=== PATIENT | male | born 1965 | race Caucasian/White ===

== ENCOUNTER → 2017-05-02 | Outpatient (CLI) | payer BC ==
[2017-05-02 12:07] LABS: CH 31.8; CHCM 33.8; HCT 45.7 % (39.0-53.0); HDW 2.59; MCHC 32.9 g/dL (31.0-37.0); MCV 94.3 fL (80.0-100.0); Mean Platelet Volume 8.2; RBC 4.84 m/uL (4.30-5.90); RDW 13.3 % (11.5-15.5)
[2017-05-02 12:39] LABS: ALT 57 U/L (21-72); AST 31 U/L (17-59); Alkaline Phosphatase 69 U/L (38-126); Anion Gap 8 mmol/L; Blood Urea Nitrogen 18 mg/dL (9-20); Calcium 9.1 mg/dL (8.4-10.2); Carbon Dioxide 26 mmol/L (22-30); Chloride 108 mmol/L (98-107); Cholesterol 155 mg/dL (<200); Glucose 97 mg/dL (74-99); HDL Cholesterol 41 mg/dL (40-60); Non-African American GFR(MDRD) >60 (>60 ml/min/1.73 sqM); Potassium 4.6 mmol/L (3.5-5.1); Sodium 142 mmol/L (137-145); Total Bilirubin 1.3 mg/dL (0.2-1.3); Total Protein 6.4 g/dL (6.3-8.2); Triglycerides 133 mg/dL (<150)
[2017-05-02 15:51] LABS: Hemoglobin A1C 5.1 % (4.2-6.1)
== END | disposition home or self-care (01) ==
LOC: LABWHC1 11:44
PROVIDERS: ATTEND Internal Medicine Critical Care Medicine
DX: I10 Essential (primary) hypertension (principal)
CPT/HCPCS: 36415; 80053; 80061; 82306; 83036; 84153; 84439; 84443; 85027

== ENCOUNTER 2018-02-11 13:39 | Observation (INO) | payer BC ==
[2018-02-11] MEDS ORDERED: SODIUM CHLORIDE 0.9% 1,000 ML IV STA ×2 (14:13)
[2018-02-11] MEDS ORDERED: ASPIRIN 81 MG PO STA (14:13)
[2018-02-11] MEDS ORDERED: LORazepam 1 MG TAB PO STA (14:20)
--- NOTE | 2018-02-11 14:20 | ED ---
Arrhythmia/Palpitations HPI - General Chief Complaint: Arrhythmia/Palpitations Stated Complaint: Chest pain Time Seen by Provider: 02/11/18 14:01 Source: patient Mode of arrival: wheelchair Limitations: no limitations - History of Present Illness Initial Comments: 52 years old male presents with the palpitation, he was driving and it happened about her [place], he stated he almost passed out he noticed palpitation no chest pain, he was short winded but no pleuritic chest pain no pain with deep breaths , and arrival to the ER while getting out of his truck he almost passed out again he added he feels better at this point no chest pain no pleuritic chest pain no fever no chills he has a no history of heart disease he does have a history of asthma and he denies any use of albuterol now. Her pain no frequency urgency dysuria no weakness of upper or lower extremities no symptoms of TIA or CVA - Related Data Home Medications Medication Instructions Recorded Confirmed Atorvastatin [Lipitor] 40 mg PO HS 05/27/15 02/11/18 Montelukast [Singulair] 10 mg PO HS 05/27/15 02/11/18 Multivitamin [Men's Multi-Vitamin] 1 tab PO DAILY 05/27/15 02/11/18 Aspirin EC [Ecotrin Low Dose] 81 mg PO HS 02/11/18 02/11/18 Cholecalciferol (Vitamin D3) 2,000 unit PO DAILY 02/11/18 02/11/18 [Vitamin D3] Losartan-Hctz 50-12.5 mg [Hyzaar 1 tab PO DAILY 02/11/18 02/11/18 50-12.5] Allergies Allergy/AdvReac Type Severity Reaction Status Date / Time No Known Allergies Allergy Verified 02/11/18 14:27 Review of Systems ROS Statement: Those systems with pertinent positive or pertinent negative responses have been documented in the HPI. ROS Other: All systems not noted in ROS Statement are negative. 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 leiomyosarcoma thigh History of Any Multi-Drug Resistant Organisms: None Reported Past Surgical History: Hernia Repair, Joint Replacement, Orthopedic Surgery Additional Past Surgical History / Comment(s): right knee replaced x 2, arthroscopies knees, trigger finger, tumor removed from thigh Past Anesthesia/Blood Transfusion Reactions: Postoperative Nausea & Vomiting ( PONV) Past Psychological History: No Psychological Hx Reported Smoking Status: Never smoker Past Alcohol Use History: None Reported Past Drug Use History: None Reported General Exam - General Exam Comments Initial Comments: General: The patient is awake and alert, in no distress, and does not appear acutely ill. Looks bit anxious Skin: Skin is warm and dry and no rashes or lesions are noted. Eye: Pupils are equal, round and reactive to light, extra-ocular movements are intact; there is normal conjunctiva bilaterally. Ears, nose, mouth and throat: There are moist mucous membranes and no oral lesions. Neck: The neck is supple, there is no tenderness or JVD. Cardiovascular: There is a regular rate and rhythm. No murmur, rub or gallop is appreciated. Noticed him mild tachycardia heart rate her exam was 104 but in triage I noticed his heart rate was 146 don't have any EKG tracing from the triage time whether is it was a sinus or any pathological rhythm Respiratory: To auscultation bilateral, no wheezing no rhonchi no distress respiratory schumacher noticed Gastrointestinal: Soft, non-distended, non-tender abdomen without masses or organomegaly noted. There is no rebound or guarding present. Bowel sounds are unremarkable. Back: There is no tenderness to palpation in the midline. There is no obvious deformity. Musculoskeletal: Normal ROM, no tenderness, There is no pedal edema. There is no calf tenderness or swelling. No cords were appreciated. Neurological: CN II-XII intact, Cranial nerves III through XII are intact. There are no obvious motor or sensory deficits. Coordination appears grossly intact. Speech is normal. Psychiatric: Cooperative, appropriate mood & affect, normal judgment. Limitations: no limitations Course Vital Signs 02/11/18 02/11/18 13:41 14:30 Pulse Rate 146 H Pulse Rate [ 103 H Sitting Database Security Expert] Pulse Rate [ 118 H Standing Database Security Expert ] Pulse Rate [ 97 Supine Database Security Expert] Respiratory 28 H Rate Blood Pressure 142/85 Blood Pressure 187/101 [Right Arm Sitting] Blood Pressure 160/97 [Right Arm Standing] Blood Pressure 159/87 [Right Arm Supine] O2 Sat by Pulse 100 Oximetry EKG was reviewed, there were couple of areas again looked quite absolutely normal though troponin is normal CBC and compressive metabolic panel are within normal range his orthostatics were done in the ER considering that I am not sure if he had a run of V. tach or any other rhythm like supraventricular tachycardia or paroxysmal atrial fibrillation and he passed out almost a couple times I want to watch him overnight under Dr. Gee service and now will consult cardiology as well (The Holter monitor and echocardiogram, his TSH was normal EKG Findings - EKG Comments: EKG Findings:: EKG is sinus tachycardia ventricular rate is 109 NV interval is 172 QRS duration is 1 of 4 QT/QTc C is 342/460 review of this EKG is a hint of ST elevation in lead 3 and aVF also looks different other leads are within normal range, have no old EKG to compare with and patient hasn't no chest pain Medical Decision Making - Lab Data Result diagrams: 02/11/18 13:59 02/11/18 13:59 Lab Results 02/11/18 02/11/18 02/11/18 Range/Units 13:59 13:59 13:59 WBC 9.5 (3.8-10.6) k/uL RBC 4.97 (4.30-5.90) m/uL Hgb 16.5 (13.0-17.5) gm/dL Hct 44.4 (39.0-53.0) % MCV 89.3 (80.0-100.0) fL MCH 33.1 (25.0-35.0) pg MCHC 37.1 H (31.0-37.0) g/dL RDW 12.8 (11.5-15.5) % Plt Count 316 (150-450) k/uL Neutrophils % 73 % Lymphocytes % 21 % Monocytes % 4 % Eosinophils % 1 % Basophils % 0 % Neutrophils # 6.9 (1.3-7.7) k/uL Lymphocytes # 2.0 (1.0-4.8) k/uL Monocytes # 0.4 (0-1.0) k/uL Eosinophils # 0.1 (0-0.7) k/uL Basophils # 0.0 (0-0.2) k/uL PT (9.0-12.0) sec INR (<1.2) APTT (22.0-30.0) sec Sodium 145 (137-145) mmol/L Potassium 4.1 (3.5-5.1) mmol/L Chloride 104 (98-107) mmol/L Carbon Dioxide 21 L (22-30) mmol/L Anion Gap 20 mmol/L BUN 22 H (9-20) mg/dL Creatinine 0.90 (0.66-1.25) mg/dL Est GFR (CKD-EPI)AfAm >90 (>60 ml/min/1.73 sqM) Est GFR (CKD-EPI)NonAf >90 (>60 ml/min/1.73 sqM) Glucose 159 H (74-99) mg/dL Calcium 10.7 H (8.4-10.2) mg/dL Magnesium 1.8 (1.6-2.3) mg/dL Total Bilirubin 1.2 (0.2-1.3) mg/dL AST 30 (17-59) U/L ALT 36 (21-72) U/L Alkaline Phosphatase 65 (38-126) U/L Total Creatine Kinase 147 (55-170) U/L CK-MB (CK-2) 3.1 H* (0.0-2.4) ng/mL CK-MB (CK-2) Rel Index 2.1 Troponin I <0.012 (0.000-0.034) ng/mL Total Protein 7.5 (6.3-8.2) g/dL Albumin 4.6 (3.5-5.0) g/dL TSH 2.320 (0.465-4.680) mIU/L 02/11/18 Range/Units 13:59 WBC (3.8-10.6) k/uL RBC (4.30-5.90) m/uL Hgb (13.0-17.5) gm/dL Hct (39.0-53.0) % MCV (80.0-100.0) fL MCH (25.0-35.0) pg MCHC (31.0-37.0) g/dL RDW (11.5-15.5) % Plt Count (150-450) k/uL Neutrophils % % Lymphocytes % % Monocytes % % Eosinophils % % Basophils % % Neutrophils # (1.3-7.7) k/uL Lymphocytes # (1.0-4.8) k/uL Monocytes # (0-1.0) k/uL Eosinophils # (0-0.7) k/uL Basophils # (0-0.2) k/uL PT 10.2 (9.0-12.0) sec INR 1.0 (<1.2) APTT 23.0 (22.0-30.0) sec Sodium (137-145) mmol/L Potassium (3.5-5.1) mmol/L Chloride (98-107) mmol/L Carbon Dioxide (22-30) mmol/L Anion Gap mmol/L BUN (9-20) mg/dL Creatinine (0.66-1.25) mg/dL Est GFR (CKD-EPI)AfAm (>60 ml/min/1.73 sqM) Est GFR (CKD-EPI)NonAf (>60 ml/min/1.73 sqM) Glucose (74-99) mg/dL Calcium (8.4-10.2) mg/dL Magnesium (1.6-2.3) mg/dL Total Bilirubin (0.2-1.3) mg/dL AST (17-59) U/L ALT (21-72) U/L Alkaline Phosphatase (38-126) U/L Total Creatine Kinase (55-170) U/L CK-MB (CK-2) (0.0-2.4) ng/mL CK-MB (CK-2) Rel Index Troponin I (0.000-0.034) ng/mL Total Protein (6.3-8.2) g/dL Albumin (3.5-5.0) g/dL TSH (0.465-4.680) mIU/L Disposition Clinical Impression: Palpitation, Tachycardia, Pre-syncope Disposition: ADMITTED IP TO THIS HOSP Condition: Good Referrals: Corey Deleon DO [Primary Care Provider] - 1-2 days
[2018-02-11 14:39] LABS: Basophils % (A) 0 %; Eosinophils # (A) 0.1 k/uL (0-0.7); Eosinophils % (A) 1 %; HCT 44.4 % (39.0-53.0); HGB 16.5 gm/dL (13.0-17.5); Lymphocytes % (A) 21 %; MCH 33.1 pg (25.0-35.0); MCHC 37.1 g/dL (31.0-37.0); MCV 89.3 fL (80.0-100.0); Mean Platelet Volume 8.5; Monocytes # (A) 0.4 k/uL (0-1.0); Monocytes % (A) 4 %; Neutrophils # (A) 6.9 k/uL (1.3-7.7); Neutrophils % (A) 73 %; Platelet Count 316 k/uL (150-450); RBC 4.97 m/uL (4.30-5.90); RDW 12.8 % (11.5-15.5); WBC 9.5 k/uL (3.8-10.6)
[2018-02-11 14:52] LABS: ALT 36 U/L (21-72); AST 30 U/L (17-59); Albumin 4.6 g/dL (3.5-5.0); Alkaline Phosphatase 65 U/L (38-126); Anion Gap 20 mmol/L; Blood Urea Nitrogen 22 mg/dL (9-20); Calcium 10.7 mg/dL (8.4-10.2); Carbon Dioxide 21 mmol/L (22-30); Chloride 104 mmol/L (98-107); Glucose 159 mg/dL (74-99); Magnesium 1.8 mg/dL (1.6-2.3); Potassium 4.1 mmol/L (3.5-5.1); Sodium 145 mmol/L (137-145); Total Bilirubin 1.2 mg/dL (0.2-1.3); Total Protein 7.5 g/dL (6.3-8.2)
[2018-02-11 14:53] LABS: Prothrombin Time 10.2 sec (9.0-12.0)
[2018-02-11 15:00] LABS: Creatine Kinase 147 U/L (55-170)
--- NOTE | 2018-02-11 15:08 | XR ---
EXAMINATION TYPE: XR chest 2V DATE OF EXAM: 02/11/2018 COMPARISON: NONE HISTORY: Palpitations and dysrhythmia. TECHNIQUE: Frontal and lateral views of the chest are obtained. FINDINGS: There is eventration of the anterior aspect right hemidiaphragm. There is no focal air spac e opacity, pleural effusion, or pneumothorax seen. The cardiac silhouette size is within normal limi ts. The osseous structures are intact. IMPRESSION: No acute cardiopulmonary process.
[2018-02-11 15:13] LABS: Troponin I <0.012 ng/mL (0.000-0.034)
[2018-02-11 15:19] LABS: Creatine Kinase MB 3.1 ng/mL (0.0-2.4)
[2018-02-11] MEDS ORDERED: MORPHINE SULFATE 4MG/4ML SYRG IVP PRN (15:31)
[2018-02-11 16:44] VITALS: BMI 36.3
[2018-02-11] MEDS ORDERED: NITROGLYCERIN OINT 1 INCH/GM PACKET TOPICAL SCH (18:00)
[2018-02-11] MEDS ORDERED: RX INFO: IV CONTRAST WAS GIVEN 1 EACH MISC MISCELLANE PRN (20:33)
[2018-02-11] MEDS: ATORVASTATIN 40 MG TAB PO SCH (21:00)
[2018-02-11] MEDS: MONTELUKAST 10 MG TAB PO SCH (21:00)
[2018-02-11 21:14] LABS: Troponin I 0.031 ng/mL (0.000-0.034)
[2018-02-11] MEDS ORDERED: MORPHINE ORAL SOLN 10 MG/5 ML CUP PO PRN (21:30)
--- NOTE | 2018-02-11 22:06 | CT ---
EXAMINATION TYPE: CT angio chest DATE OF EXAM: 02/11/2018 COMPARISON: Same day chest x-ray HISTORY: SOB rule out pulmonary embolism. CT DLP: 687 mGycm. Automated Exposure Control for Dose Reduction was Utilized. CONTRAST: CTA scan of the thorax is performed with IV Contrast, patient injected with 80 mL of Isovue 370, pulm onary embolism protocol. MIP Images are created on CT scanner and reviewed. FINDINGS: LUNGS: The lungs are grossly clear, there is no concerning parenchymal mass or nodule identified. T here is no pleural effusion or pneumothorax seen. The tracheobronchial tree is patent. MEDIASTINUM: There is satisfactory enhancement of the pulmonary artery and its branches, there is no CT evidence for pulmonary embolism. There are no greater than 1 cm hilar or mediastinal lymph nodes. No cardiomegaly or pericardial effusion is seen. OTHER: There is 1.6 cm rounded low-density lesion left hepatic lobe favoring simple cyst axial image 155. IMPRESSION: No CT evidence for acute pulmonary embolism. No suspicious acute pulmonary process.
--- NOTE | 2018-02-11 23:06 | HP ---
HISTORY AND PHYSICAL DATE OF ADMISSION: 02/11/2018 PRESENTING COMPLAINT: Heart racing. HISTORY OF PRESENTING COMPLAINT: This is a very pleasant 52-year-old patient of Dr. Deleon. Chronic stable medical conditions include asthma, asthma, hypertension, hyperlipidemia. 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 The patient is rather active. The patient was driving back from [place] on [address] and suddenly felt if there was a olvera to his head and heart started racing. The patient started driving in the slow zeeshan and patient had waves of these episodes that came and went. No perspiration, but the patient was nearly going to pass out. There was no chest pressure, no chest pain. Finally, patient drove straight to the hospital ER. When he was getting of the truck, he nearly again passed out. There was a tachycardia that initially got picked up, but could not be put on the recording paper. The patient had no prior arrhythmias. REVIEW OF SYSTEMS: CONSTITUTIONAL: Tired. HEENT: None. RESPIRATORY: As above. CARDIOVASCULAR: As above. GASTROINTESTINAL: None. GENITOURINARY: None. MUSCULOSKELETAL: Occasional aches and pains in the joints. DERMATOLOGICAL: None. HEMATOLOGIC: None. LYMPHATIC: None. PSYCHIATRY: None. NEUROLOGIC: None. PAST HISTORY: Asthma, DVT after knee surgery, hypertension, hyperlipidemia, leiomyosarcoma of the right thigh. See report of the left knee. PAST SURGICAL HISTORY: Hernia repair, joint replacement, right knee replaced x2, trigger finger surgery x5, tumor removed from the thigh, leiomyosarcoma. SOCIAL HISTORY: Does not smoke or drink alcohol. 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 FAMILY HISTORY: Reviewed, noncontributory to presentation. HOME MEDICATIONS: 1. Men's multivitamin 1 tablet p.o. daily. 2. Singulair 10 mg p.o. q.h.s. 3. Hyzaar 50/12.5 one tablet p.o. daily. 4. Vitamin D3 2000 units p.o. daily. 5. Lipitor 40 mg q.h.s. 6. Aspirin 81 mg p.o. q.h.s. EXAMINATION: Temperature 98.7, pulse 73, respirations 18, blood pressure 117/78, pulse ox 96% on room air. GENERAL APPEARANCE: Well-built, BMI 36.4, lying in bed, comfortable. EYES: Pupils equal. Conjunctivae normal. HEENT: External appearance of nose and ears normal. Oral cavity normal. NECK: JVD not raised. Mass not palpable. RESPIRATORY: Effort normal. Lungs are clear. CARDIOVASCULAR: First and second sounds normal. No edema. ABDOMEN: Soft, nontender. Liver and spleen not palpable. LYMPHATIC: No lymph node palpable in neck or axillae. PSYCHIATRY: Alert and oriented x3. Mood and affect normal. NEUROLOGICAL: Pupils equal. Cranial nerves grossly intact. Power and sensation grossly intact. INVESTIGATIONS: White count 9.5. Potassium 4.1, BUN 22, creatinine 0.90. Troponin less than 0.012, 0.031. TSH normal. EKG: The patient does seem to have S1Q3T3 in the EKG. Chest x- ray reported unremarkable. ASSESSMENT: 1. This is a patient with episodes of heart racing, probably episodes of arrhythmia resulting in near syncope. 2. Abnormal EKG showing S1QTT3. Given a prior history of deep venous thrombosis, will rule out pulmonary embolism that can sometimes manifest as near syncope, though and in this case he did have the heart racing. 3. Intermittent asthma. 4. Essential hypertension. 5. Hyperlipidemia. 6. Obesity; BMI 36.4. PLAN: Urgent CT scan of the chest has been ordered. Home medications resumed. Patient put on telemetry. Care was discussed with the patient. Questions were answered. Cardiology was consulted. MMBASILIOL / TOMN: [id number] /
[2018-02-12 02:25] LABS: Troponin I 0.019 ng/mL (0.000-0.034)
[2018-02-12 02:28] LABS: Creatine Kinase MB 2.5 ng/mL (0.0-2.4)
[2018-02-12 03:36] LABS: Cholesterol 175 mg/dL (<200); HDL Cholesterol 43 mg/dL (40-60); LDL Cholesterol,Calculated 93 mg/dL (0-99); Triglycerides 193 mg/dL (<150)
--- NOTE | 2018-02-12 10:47 | P.CRDCN ---
History of Present Illness Consult date: 02/12/18 Chief complaint: Funny feeling in my chest History of present illness: This is a pleasant 52-year-old gentleman who presented to the emergency room complaining of funny feeling in the chest. He was driving his car on the highway when he suddenly felt lightheaded and subsequently he felt his heart was racing. He does not recall having any chest discomfort or chest pain but he was holding his chest probably because of the heart racing. No dizziness and no syncope. The patient was admitted to the hospital for further evaluation. The EKG showed sinus rhythm without any ischemic changes. The cardiac enzymes were checked and came in to be unremarkable. The computed tomography scan of the chest did not show any evidence of PE. The patient does not have any history of coronary artery disease or congestive heart failure or cardiac arrhythmia. He does have asthma and he does have history of DVT in the past. He just had his left knee drained for pseudogout recently. He does not smoke. There is no family history of coronary artery disease. I am going to obtain a stress test and echocardiogram and follow-up with the patient. 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, left knee pseudo-gout History of Any Multi-Drug Resistant Organisms: None Reported Past Surgical History: Hernia Repair, Joint Replacement, Orthopedic Surgery Additional Past Surgical History / Comment(s): right knee replaced x 2, arthroscopies knees, trigger finger surgeries x5, tumor removed from thigh Past Anesthesia/Blood Transfusion Reactions: Postoperative Nausea & Vomiting ( PONV) Past Psychological History: No Psychological Hx Reported Smoking Status: Never smoker Past Alcohol Use History: None Reported Past Drug Use History: None Reported Medications and Allergies Home Medications Medication Instructions Recorded Confirmed Type Atorvastatin [Lipitor] 40 mg PO HS 05/27/15 02/11/18 History Montelukast [Singulair] 10 mg PO HS 05/27/15 02/11/18 History Multivitamin [Men's Multi-Vitamin] 1 tab PO DAILY 05/27/15 02/11/18 History Aspirin EC [Ecotrin Low Dose] 81 mg PO HS 02/11/18 02/11/18 History Cholecalciferol (Vitamin D3) 2,000 unit PO DAILY 02/11/18 02/11/18 History [Vitamin D3] Losartan-Hctz 50-12.5 mg [Hyzaar 1 tab PO DAILY 02/11/18 02/11/18 History 50-12.5] Allergies Allergy/AdvReac Type Severity Reaction Status Date / Time No Known Allergies Allergy Verified 02/11/18 14:27 Physical Exam Vitals: Vital Signs Temp Pulse Pulse Pulse Pulse Pulse Resp 02/12/18 08:00 98.1 F 68 103 H 118 H 92 18 02/12/18 07:37 02/12/18 04:10 97.9 F 60 18 02/12/18 04:00 16 02/12/18 00:07 98.5 F 66 16 02/12/18 00:00 16 02/11/18 20:19 98.7 F 73 18 02/11/18 20:00 18 02/11/18 16:50 89 103 H 118 H 92 18 02/11/18 16:06 98.2 F 89 18 02/11/18 15:53 98.1 F 92 18 02/11/18 15:31 93 18 02/11/18 14:30 103 H 118 H 97 02/11/18 13:41 146 H 28 H BP BP BP BP BP Pulse Ox 02/12/18 08:00 131/84 95 02/12/18 07:37 95 02/12/18 04:10 132/85 97 02/12/18 04:00 02/12/18 00:07 117/78 95 02/12/18 00:00 02/11/18 20:19 117/78 96 02/11/18 20:00 02/11/18 16:50 02/11/18 16:06 140/83 98 02/11/18 15:53 153/94 02/11/18 15:31 161/91 96 02/11/18 14:30 187/101 160/97 159/87 02/11/18 13:41 142/85 100 Intake and Output 02/11/18 02/12/18 02/12/18 22:59 06:59 14:59 Other: Voiding Method Toilet Toilet Toilet # Voids 1 2 Weight 142.882 kg 142.882 kg - Constitutional General appearance: no acute distress - Respiratory Respiratory: bilateral: CTA - Cardiovascular Rhythm: regular Heart sounds: normal: S1, S2 Results 02/11/18 13:59 02/11/18 13:59 Cardiac Enzymes 02/11/18 02/11/18 02/11/18 Range/Units 13:59 13:59 20:13 AST 30 (17-59) U/L CK-MB (CK-2) 3.1 H* 3.0 H* (0.0-2.4) ng/mL Troponin I <0.012 0.031 (0.000-0.034) ng/mL 02/12/18 Range/Units 01:28 AST (17-59) U/L CK-MB (CK-2) 2.5 H* (0.0-2.4) ng/mL Troponin I 0.019 (0.000-0.034) ng/mL Coagulation 02/11/18 Range/Units 13:59 PT 10.2 (9.0-12.0) sec APTT 23.0 (22.0-30.0) sec Lipids 02/11/18 Range/Units 13:59 Triglycerides 193 H (<150) mg/dL Cholesterol 175 (<200) mg/dL HDL Cholesterol 43 (40-60) mg/dL CBC 02/11/18 Range/Units 13:59 WBC 9.5 (3.8-10.6) k/uL RBC 4.97 (4.30-5.90) m/uL Hgb 16.5 (13.0-17.5) gm/dL Hct 44.4 (39.0-53.0) % Plt Count 316 (150-450) k/uL Comprehensive Metabolic Panel 02/11/18 Range/Units 13:59 Sodium 145 (137-145) mmol/L Potassium 4.1 (3.5-5.1) mmol/L Chloride 104 (98-107) mmol/L Carbon Dioxide 21 L (22-30) mmol/L BUN 22 H (9-20) mg/dL Creatinine 0.90 (0.66-1.25) mg/dL Glucose 159 H (74-99) mg/dL Calcium 10.7 H (8.4-10.2) mg/dL AST 30 (17-59) U/L ALT 36 (21-72) U/L Alkaline Phosphatase 65 (38-126) U/L Total Protein 7.5 (6.3-8.2) g/dL Albumin 4.6 (3.5-5.0) g/dL Current Medications Generic Name Dose Route Start Last Admin Trade Name [place] PRN Reason Stop Dose Admin Aspirin 325 mg 02/12/18 09:00 Aspirin PO DAILY [facility] Atorvastatin Calcium 40 mg 02/11/18 21:00 02/11/18 21:00 Lipitor PO 40 mg HS [facility] Administration Cholecalciferol 2,000 unit 02/12/18 12:00 Vitamin D3 PO 1200 [facility] HCTZ/Losartan Potassium 1 each 02/12/18 09:00 Hyzaar 50-12.5 PO DAILY [facility] Lisinopril 10 mg 02/12/18 09:00 Zestril PO DAILY [facility] Miscellaneous Information 1 each 02/11/18 20:33 Rx Info: Iv Contrast Was Given MISCELLANE 02/13/18 20:34 DAILY PRN Per Protocol Montelukast Sodium 10 mg 02/11/18 21:00 02/11/18 21:00 Singulair PO 10 mg HS [facility] Administration Morphine Sulfate 6 mg 02/11/18 21:30 Morphine Oral Cristina 2mg/Ml PO Q5M PRN Chest Pain Multivitamins 1 each 02/12/18 12:00 Theragran PO 1200 [facility] Intake and Output 02/11/18 02/12/18 02/12/18 22:59 06:59 14:59 Other: Voiding Method Toilet Toilet Toilet # Voids 1 2 Weight 142.882 kg 142.882 kg 02/11/18 13:59 02/11/18 13:59 Assessment and Plan Assessment: Assessment #1 an episode of heart racing and fluttering associated with lightheadedness #2 history of DVT in the past Plan #1 acute coronary syndrome was ruled #2 cardiac arrhythmia to be ruled out. He might benefit from an event monitor as an outpatient if he did not have any arrhythmia while he is in the hospital next #3 I'll obtain an echocardiogram was Doppler #4 obtain a stress test as well. #5 obtain a TSH. Thank you for allowing us participate in his care.
[2018-02-12] MEDS: LISINOPRIL 10 MG TAB PO SCH (11:43)
[2018-02-12] MEDS: LOSARTAN-HCTZ 50-12.5 MG 1 EACH TAB PO SCH (11:43)
[2018-02-12] MEDS: ASPIRIN 325 MG TAB PO SCH (11:43)
[2018-02-12] MEDS: CHOLECALCIFEROL 1,000 UNIT TAB PO SCH (11:44)
[2018-02-12] MEDS: MULTIVITAMINS, THERA 1 EACH TAB PO SCH (11:44)
--- NOTE | 2018-02-12 14:28 | PN ---
PROGRESS NOTE DATE OF SERVICE: 02/12/18. PRESENT COMPLAINT: Heart racing. INTERVAL HISTORY: This patient presented with episodes of near-syncope and heart racing and he drove to the hospital. PE was ruled out. Telemetry did not merchandise pickup/receiving associate anything. Seen by Cardiology. Due for stress test tomorrow. Otherwise, patient is up and about in the hallway. REVIEW OF SYSTEMS: Done for constitutional, cardiovascular, GI, pulmonary; relevant findings as above. CURRENT MEDICATIONS: Reviewed. EXAMINATION: Temperature 98.1, pulse 99, respiratory 18, blood pressure 140/86, pulse ox 96% on room air. GENERAL APPEARANCE: Sitting up in bed, comfortable. EYES: Pupils equal. Conjunctivae normal. HEENT: External appearance of nose and ears normal. Oral cavity normal NECK: JVD not raised. Mass not palpable. RESPIRATORY: Effort normal, lungs are clear. CARDIOVASCULAR: First and second sounds normal. No edema. ABDOMEN: Soft, nontender. Liver and spleen not palpable. PSYCHIATRY: Alert and oriented x3. Mood and affect normal. INVESTIGATION: Telemetry shows sinus rhythm. Troponin is less than 0.012, 0.031, 0.0019. ASSESSMENT: 1. Episodes of tachycardia. Cardiac ischemia being ruled out. Patient's TSH is normal. 2. Pulmonary embolism was ruled out. 3. Intermittent asthma. 4. Essential hypertension. 5. Hyperlipidemia. 6. Obesity, BMI 36.4. PLAN: Await stress test. Other medications to continue. Care was discussed with the patient. MMODL / IJN: [id number] /
--- NOTE | 2018-02-12 15:07 | P.CNPUL ---
History of Present Illness Consult date: 02/12/18 Requesting physician: Ricky Gee Reason for consult: other (Palpitations, history of asthma.) Chief complaint: Lightheadedness and palpitations History of present illness: This is a 52-year-old white male who normally sees Dr. Rachel Deleon for mild intermittent asthma, and fairly well controlled. Patient came into the ER yesterday complaining of a sudden episode of palpitations and funny sensation in the head almost about to pass out. Patient felt extremely lightheaded while he was driving on the highway, however the patient Driving, and the feeling lasted for about 20 minutes. By the time he arrived to the ER, his symptoms have completely resolved. Patient was worked up in the ER, and the workup included multiple labs which were normal, and CT angiogram of the chest which was normal. EKG did show S1 Q3T3, but again the CT angiogram of the chest was normal. Patient was admitted, and this consult was initiated. Presently the patient is asymptomatic, denies any lightheadedness, no diaphoresis, no chest pain, no palpitations, no shortness of breath, no cough, no wheezing, no nausea no vomiting no abdominal pain no melena no hematemesis is no dysuria and no frequency no urgency. Patient was seen by cardiology on consultation, and he is scheduled to have a stress test, he will likely need an event monitor on outpatient basis assuming his initial cardiac workup is nondiagnostic. Review of Systems 14 point review of systems were obtained, please refer to pertinent positives in HPI, otherwise remaining systems are negative. 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, left knee pseudo-gout History of Any Multi-Drug Resistant Organisms: None Reported Past Surgical History: Hernia Repair, Joint Replacement, Orthopedic Surgery Additional Past Surgical History / Comment(s): right knee replaced x 2, arthroscopies knees, trigger finger surgeries x5, tumor removed from thigh Past Anesthesia/Blood Transfusion Reactions: Postoperative Nausea & Vomiting ( PONV) Past Psychological History: No Psychological Hx Reported Smoking Status: Never smoker Past Alcohol Use History: None Reported Past Drug Use History: None Reported Medications and Allergies Home Medications Medication Instructions Recorded Confirmed Type Atorvastatin [Lipitor] 40 mg PO HS 05/27/15 02/11/18 History Montelukast [Singulair] 10 mg PO HS 05/27/15 02/11/18 History Multivitamin [Men's Multi-Vitamin] 1 tab PO DAILY 05/27/15 02/11/18 History Aspirin EC [Ecotrin Low Dose] 81 mg PO HS 02/11/18 02/11/18 History Cholecalciferol (Vitamin D3) 2,000 unit PO DAILY 02/11/18 02/11/18 History [Vitamin D3] Losartan-Hctz 50-12.5 mg [Hyzaar 1 tab PO DAILY 02/11/18 02/11/18 History 50-12.5] Allergies Allergy/AdvReac Type Severity Reaction Status Date / Time No Known Allergies Allergy Verified 02/11/18 14:27 Physical Exam Vitals: Vital Signs Temp Pulse Pulse Pulse Pulse Pulse Resp 02/12/18 12:00 98.1 F 79 103 H 118 H 92 18 02/12/18 08:00 98.1 F 68 103 H 118 H 92 18 02/12/18 07:37 02/12/18 04:10 97.9 F 60 18 02/12/18 04:00 16 02/12/18 00:07 98.5 F 66 16 02/12/18 00:00 16 02/11/18 20:19 98.7 F 73 18 02/11/18 20:00 18 02/11/18 16:50 89 103 H 118 H 92 18 02/11/18 16:06 98.2 F 89 18 02/11/18 15:53 98.1 F 92 18 02/11/18 15:31 93 18 BP BP BP Pulse Ox 02/12/18 12:00 141/86 96 02/12/18 08:00 131/84 95 02/12/18 07:37 95 02/12/18 04:10 132/85 97 02/12/18 04:00 02/12/18 00:07 117/78 95 02/12/18 00:00 02/11/18 20:19 117/78 96 02/11/18 20:00 02/11/18 16:50 02/11/18 16:06 140/83 98 02/11/18 15:53 153/94 02/11/18 15:31 161/91 96 Intake and Output 02/11/18 02/12/18 02/12/18 22:59 06:59 14:59 Other: Voiding Method Toilet Toilet Toilet # Voids 1 2 Weight 142.882 kg 142.882 kg 142.882 kg Physical Exam: Revealed a 52-year-old white male in no distress. Head: Atraumatic, normocephalic. Eyes: PERRLA, EOMI, no icterus. HEENT:[Neck is supple.] [No neck masses.] [No thyromegaly.] [No JVD.] Chest: [Clear throughout, no crackles, no rhonchi, no wheezes.] Cardiac Exam: [Normal S1 and S2, no S3 gallop, no murmur.] Abdomen: [Soft, nontender, no megaly, no rebound, no guarding, normal bowel sounds.] Extremities: [No clubbing, no edema, no cyanosis.] Neurological Exam: [No focal neurologic deficit. Psychiatric: Normal mood affect and mental status examination. Musculoskeletal full intact, normal range of motion, no weakness. Lymphatics: No lymphadenopathy.] Results - Laboratory Findings CBC and BMP: 02/11/18 13:59 02/11/18 13:59 PT/INR, D-dimer PT 10.2 sec (9.0-12.0) 02/11/18 13:59 INR 1.0 (<1.2) 02/11/18 13:59 Abnormal lab findings: Abnormal Labs 02/11/18 02/11/18 02/11/18 13:59 13:59 13:59 MCHC 37.1 H Carbon Dioxide 21 L BUN 22 H Glucose 159 H Calcium 10.7 H CK-MB (CK-2) 3.1 H* Triglycerides 02/11/18 02/11/18 02/12/18 13:59 20:13 01:28 MCHC Carbon Dioxide BUN Glucose Calcium CK-MB (CK-2) 3.0 H* 2.5 H* Triglycerides 193 H - Diagnostic Findings Chest x-ray: image reviewed (No evidence of active disease was appreciated.) CT scan - chest: image reviewed Assessment and Plan Assessment: Impression: 1 near syncope, most likely secondary to cardiac arrhythmia, nonsustained. 2 possible underlying coronary artery disease, patient is scheduled to have a cardiac stress test tomorrow. 3 history of mild bronchial asthma asymptomatic, and stable at this point. Recommendation: Agree with the present diagnostic and treatment plan as per cardiology, patient will need further cardiac investigations tomorrow, thyroid profile is pending, will definitely need at least an echocardiogram, stress testing, and a 30 day event monitor. We'll continue to follow. Time with Patient: Greater than 30
[2018-02-12] MEDS: MONTELUKAST 10 MG TAB PO SCH (20:00)
[2018-02-12] MEDS: ATORVASTATIN 40 MG TAB PO SCH (20:00)
[2018-02-12 23:29] VITALS: RESP 18
[2018-02-13] MEDS ORDERED: AMINOPHYLLINE 500 MG/20 ML VIAL IV PRN (05:00)
[2018-02-13] MEDS ORDERED: REGADENOSON 0.4 MG/5 ML SYRINGE IV ONE (05:00)
[2018-02-13] MEDS ORDERED: SYMBICORT 80-4.5 MCG INHALER INHALATION SCH (08:00)
--- NOTE | 2018-02-13 10:48 | EST ---
EXERCISE STRESS DATE OF SERVICE: 02/13/2018 AGE: 52 SEX: Male HT: 6'6" WT: 315 pounds PROTOCOL: Lexiscan Cardiolite STAGE: DURATION OF EXERCISE: HEART RATE REST: 68 BLOOD PRESSURE REST: 137/99 MAXIMUM HEART RATE ACHIEVED: 129 MAXIMUM BLOOD PRESSURE: 155/100 85% MPHR: 141 100% MPHR: 166 METS: INDICATIONS: Dizzy, palpitations. CLINICAL INFORMATION: A 52-year-old male patient with chest discomfort, palpitations and dizziness, referred for a Lexiscan Cardiolite stress test. Baseline heart rate 68 beats per minute. Baseline blood pressure is 137/99 mmHg. Patient's baseline 12-lead ECG shows sinus rhythm with normal ST segments. Patient received Lexiscan infusion per protocol. He did complain of chest pain during the stress test but he had no ECG changes and occasional PVC was noted. Heart rate and blood pressure remained within normal limits. Nuclear portion of the stress test will be reported separately. MMODL / IJN: [id number] /
[2018-02-13] MEDS: ASPIRIN 325 MG TAB PO SCH (10:50)
[2018-02-13] MEDS: LOSARTAN-HCTZ 50-12.5 MG 1 EACH TAB PO SCH (10:50)
[2018-02-13] MEDS: LISINOPRIL 10 MG TAB PO SCH (10:50)
--- NOTE | 2018-02-13 10:58 | NM ---
EXAMINATION TYPE: NM stress lexiscan cardiolite DATE OF EXAM: 02/13/2018 COMPARISON: NONE HISTORY: Chest pain and heart palpitations TECHNIQUE: After the intravenous administration of 10.29 mCi Tc 99m Sestamibi - Cardiolite resting S PECT images acquired 45 minutes post injection. The patient received 0.4mg Lexiscan, 26.7 mCi Tc 99m Sestamibi - Stress images obtained [address] injection FINDINGS: Review of stress and rest SPECT images demonstrates no distinct perfusion abnormality. Gated analysi s shows normal wall motion with an estimated left ventricular ejection fraction of 51 %. IMPRESSION: No scintigraphic evidence for reversible ischemia.
[2018-02-13 11:39] VITALS: BP 149/88; PULSE 73; TEMP 98.2
[2018-02-13] MEDS: CHOLECALCIFEROL 1,000 UNIT TAB PO SCH (12:35)
[2018-02-13] MEDS: MULTIVITAMINS, THERA 1 EACH TAB PO SCH (12:35)
--- NOTE | 2018-02-13 12:57 | P.PN ---
Subjective Progress Note Date: 02/13/18 Principal diagnosis: Near syncopal episode, most likely secondary to cardiac arrhythmia, nonsustained This is a 52-year-old white male who normally sees Dr. Rachel Deleon for mild intermittent asthma, and fairly well controlled. Patient came into the ER yesterday complaining of a sudden episode of palpitations and funny sensation in the head almost about to pass out. Patient felt extremely lightheaded while he was driving on the highway, however the patient Driving, and the feeling lasted for about 20 minutes. By the time he arrived to the ER, his symptoms have completely resolved. Patient was worked up in the ER, and the workup included multiple labs which were normal, and CT angiogram of the chest which was normal. EKG did show S1 Q3T3, but again the CT angiogram of the chest was normal. Patient was admitted, and this consult was initiated. Presently the patient is asymptomatic, denies any lightheadedness, no diaphoresis, no chest pain, no palpitations, no shortness of breath, no cough, no wheezing, no nausea no vomiting no abdominal pain no melena no hematemesis is no dysuria and no frequency no urgency. Patient was seen by cardiology on consultation, and he is scheduled to have a stress test, he will likely need an event monitor on outpatient basis assuming his initial cardiac workup is nondiagnostic. On 02/13/2018 patient seen in follow-up. He underwent Lexiscan stress test which showed no scintigraphic evidence for reversible ischemia, during the exercise portion of the stress test patient did have chest pain however did not have any EKG changes. During our evaluation patient denies any chest pain at rest, denies any dyspnea, lung sounds are clear, diminished at the bases. Afebrile, vital signs are stable, on room air, with O2 sat 95%. No evidence of wheezing, chest congestion or sputum production. CTA chest was negative for any evidence of pulmonary embolism. Patient's presyncopal episode is thought to be related to a possible episode of nonsustained arrhythmia. Troponins were negative 3, however all 3 sets of CK-MBs were elevated And out of 3.1. White count is within normal limits, at 9.5. Chest x-ray and CTA chest were negative for any evidence of any acute pulmonary process. But in view of patient's EKG changes with S1 every 3 T3 pattern, we'll obtain VQ scan, d-dimer. Patient will need an outpatient Holter monitor for 1 week after discharge. 2-D echo has been completed, and the results are pending. Objective - Vital Signs Vital signs: Vital Signs Temp 98.2 F 02/13/18 11:39 Pulse 73 02/13/18 11:39 Resp 18 02/13/18 11:39 BP 149/88 02/13/18 11:39 Pulse Ox 95 02/13/18 11:39 Intake & Output 02/12/18 02/13/18 02/13/18 18:59 06:59 18:59 Weight 142.882 kg Other: Voiding Method Toilet Toilet Toilet # Voids 3 1 - Exam Physical Exam: Revealed a 52-year-old white male in no distress. Head: Atraumatic, normocephalic. Eyes: PERRLA, EOMI, no icterus. HEENT:[Neck is supple.] [No neck masses.] [No thyromegaly.] [No JVD.] Chest: [Clear throughout, no crackles, no rhonchi, no wheezes.] Cardiac Exam: [Normal S1 and S2, no S3 gallop, no murmur.] Abdomen: [Soft, nontender, no megaly, no rebound, no guarding, normal bowel sounds.] Extremities: [No clubbing, no edema, no cyanosis.] Neurological Exam: [No focal neurologic deficit. Psychiatric: Normal mood affect and mental status examination. Musculoskeletal full intact, normal range of motion, no weakness. Lymphatics: No lymphadenopathy.] - Labs CBC & Chem 7: 02/11/18 13:59 02/11/18 13:59 Assessment and Plan Plan: Assessment: 1 near syncope, most likely secondary to cardiac arrhythmia, nonsustained. 2 possible underlying coronary artery disease, the Lexiscan stress test did not show any scintigraphic evidence of reversible ischemia, the exercise portion of the stress test was positive for chest pain, however no EKG changes were noted with it 3 history of mild bronchial asthma asymptomatic, and stable at this point. Plan: The results of the stress test were noted, patient did have chest pain during the exercise portion, however no EKG changes were noted with it. Will await the results of the 2-D echo, will obtain a VQ scan and the d-dimer, although CTA chest did not show any evidence of pulmonary embolism. Patient will need a Holter monitor post discharge for 1 week. Will need a follow-up appointment Dr. Deleon early next week. We'll continue to follow I performed a history & physical examination of the patient and discussed their management with my nurse practitioner, Jocelyne Hayes. I reviewed the nurse practitioner's note and agree with the documented findings and plan of care. Lung sounds are clear. The findings and the impression was discussed with the patient. I attest to the documentation by the nurse practitioner. Time with Patient: Less than 30
--- NOTE | 2018-02-13 13:57 | P.PN ---
Subjective Progress Note Date: 02/13/18 Mr. Galarza is seen and examined today resting comfortably in bed in no acute distress. He was seen yesterday by Dr. Du and scheduled for a Lexiscan stress test today to rule out reversible cardiac ischemia. He has had no further symptoms of chest discomfort, palpitations or dizziness overnight. Telemetry tracings have been unremarkable. TSH was checked and was unremarkable at 2.3. Objective - Vital Signs Vital signs: Vital Signs Temp 98.2 F 02/13/18 11:39 Pulse 73 02/13/18 11:39 Resp 18 02/13/18 11:39 BP 149/88 02/13/18 11:39 Pulse Ox 95 02/13/18 11:39 Intake & Output 02/12/18 02/13/18 02/13/18 18:59 06:59 18:59 Intake Total 420 Balance 420 Weight 142.882 kg Intake: Oral 420 Other: Voiding Method Toilet Toilet Toilet # Voids 3 1 - Exam Blood pressure 147/92 heart rate 66 afebrile maintaining oxygen saturation on room air. GENERAL: Well-appearing, well-nourished and in no acute distress. NECK: Supple without JVD or thyromegaly. LUNGS: Breath sounds clear to auscultation bilaterally. Respiration equal and unlabored. No wheezes, rales or rhonchi. HEART: Regular rate and rhythm without murmurs, rubs or gallops. S1 and S2 heard. EXTREMITIES: Normal range of motion, no edema. No clubbing or cyanosis. Peripheral pulses intact and strong. - Labs CBC & Chem 7: 02/11/18 13:59 02/11/18 13:59 Assessment and Plan Assessment: ASSESSMENT 1. Chest pain, atypical. An acute coronary event has been ruled out. 2. Palpitation with dizziness, no loss of consciousness. 3. History of gout 4. History of DVT 5. Hypertension 6. Dyslipidemia PLAN Proceed with Lexiscan stress test to rule out reversible cardiac ischemia. Change aspirin to 81 mg daily and discontinue lisinopril as he is already on losartan/hctz. If negative, he is stable from a cardiac perspective. Will consider an event monitor if stress test is negative. Nurse Practitioner note has been reviewed, I agree with a documented findings and plan of care. Patient was seen and examined.
--- NOTE | 2018-02-13 18:49 | ECHOF ---
Referral Reason:palpitations/cp MEASUREMENTS -------- HEIGHT: 198.1 cm WEIGHT: 142.9 kg BP: 127/77 IVSd: 1.3 cm (0.6 - 1.1) LVIDd: 5.6 cm (3.9 - 5.3) LVPWd: 1.3 cm (0.6 - 1.1) IVSs: 1.6 cm LVIDs: 4.0 cm LVPWs: 1.6 cm RVIDd: 3.5 cm (< 3.3) LAESV Index (A-L): 13.02 ml/m Ao Diam: 3.6 cm (2.0 - 3.7) LA Diam: 3.1 cm (2.7 - 3.8) AV Cusp: 2.5 cm (1.5 - 2.6) EPSS: 0.6 cm MV E Rosales: 0.56 m/s MV DecT: 418 ms MV A Rosales: 0.70 m/s MV E/A Ratio: 0.81 RAP: 5.00 mmHg RVSP: 10.74 mmHg MV EF SLOPE: 97.39 mm/s (70 - 150) MV EXCURSION: 1.82 cm (> 18.000) FINDINGS -------- Sinus rhythm. This was a technically adequate study. The left ventricular size is normal. There is mild concentric left ventricular hypertrophy. Overa ll left ventricular systolic function is low-normal with, an EF between 50 - 55 %. The right ventricle is mildly enlarged. Normal LA size by volume 22+/-6 ml/m2. The right atrium is normal in size. The aortic valve is trileaflet, and appears structurally normal. No aortic stenosis or regurgitation. The mitral valve is normal. There is trace mitral regurgitation. Trace tricuspid regurgitation present. Right ventricular systolic pressure is normal at < 35 mmHg. There is no evidence of pulmonary hypertension. The pulmonic valve was not well visualized. The aortic root is borderline dilated up to 3.7cm Normal inferior vena cava with normal inspiratory collapse consistent with estimated right atrial pre ssure of 5 mmHg. There is no pericardial effusion. CONCLUSIONS -------- 1. Sinus rhythm. 2. This was a technically adequate study. 3. The left ventricular size is normal. 4. There is mild concentric left ventricular hypertrophy. 5. Overall left ventricular systolic function is low-normal with, an EF between 50 - 55 %. 6. The right ventricle is mildly enlarged. 7. Normal LA size by volume 22+/-6 ml/m2. 8. The aortic valve is trileaflet, and appears structurally normal. No aortic stenosis or regurgitati on. 9. There is trace mitral regurgitation. 10. Trace tricuspid regurgitation present. 11. Right ventricular systolic pressure is normal at < 35 mmHg. 12. There is no evidence of pulmonary hypertension. 13. The pulmonic valve was not well visualized. 14. The aortic root is borderline dilated up to 3.7cm 15. There is no pericardial effusion. [employer] CHECKER: Jorge Silva RDCS
[2018-02-14] MEDS ORDERED: ASPIRIN 81 MG PO SCH (09:00)
== END 2018-02-13 16:32 | disposition home or self-care (01) ==
LOC: EC 13:39 → 3OBS 15:32 → 3SUR 02-12 09:36 → 3OBS 02-12 18:00
PROVIDERS: ADMIT Hospitalist; ATTEND Hospitalist
DX: R00.0 Tachycardia, unspecified (principal); R55 Syncope and collapse; R42 Dizziness and giddiness; R07.89 Other chest pain; R00.2 Palpitations; R94.31 Abnormal electrocardiogram [ECG] [EKG]; J45.20 Mild intermittent asthma, uncomplicated; I10 Essential (primary) hypertension; E78.5 Hyperlipidemia, unspecified; Z68.36 Body mass index [BMI] 36.0-36.9, adult; E66.9 Obesity, unspecified; Z79.82 Long term (current) use of aspirin; Z79.899 Other long term (current) drug therapy; Z86.718 Personal history of other venous thrombosis and embolism; Z85.831 Personal history of malignant neoplasm of soft tissue; Z96.651 Presence of right artificial knee joint; Z87.39 Personal history of other diseases of the musculoskeletal system and connective tissue
CPT/HCPCS: 99285 ×2; 96360 ×2; 96361 ×4; 36415; 94640; 94760; 93005; 93017; 93306; 85379; 80061; 80053; 82550 ×2; 82553 ×2; 83735; 84443; 84484 ×2; 85025; 85610; 85730; 71046; 71275; 78452; G0378 ×3; A9500; J2785; Q9967

== ENCOUNTER → 2018-02-21 | Outpatient (CLI) | payer BC ==
--- NOTE | 2018-03-20 14:45 | HM ---
HOLTER MONITOR REPORT HOLTER MONITOR: Patient was monitored between February 21 and March 13, 2018. The rhythm strip revealed sinus mechanism. There was evidence of single PVCs with a bigeminal pattern. 1 4 complex ventricle tachycardia was noted. CHANDU / TOMN: [id number] /
== END | disposition home or self-care (01) ==
LOC: RADECHMAIN 11:48
PROVIDERS: ATTEND Internal Medicine
DX: I49.3 Ventricular premature depolarization (principal); I47.2 Ventricular tachycardia
CPT/HCPCS: 93270; 93271

== ENCOUNTER → 2018-02-28 | Day surgery (SDC) | payer BC ==
[2018-02-24 11:54] VITALS: BMI 35.8
[~2018-02-28] MED LIST: SODIUM CHLORIDE 0.9% 1,000 ML IV ONE; SODIUM CHLORIDE 0.9% 1,000 ML IV SCH; SODIUM CHLORIDE 0.9% 500 ML IV ONE
[2018-02-28 10:16] VITALS: PULSE 64; TEMP 97.8
[2018-02-28 11:24] VITALS: BP 139/83; RESP 16
--- NOTE | 2018-02-28 17:24 | P.PCN ---
Preoperative Diagnosis: Symptoms, indication for procedure Recurrent dizzy spells presyncope and palpitations Twelve-lead ECG shows sinus rhythm normal TX narrow QRS normal ST segments Left axis deviation Tilt table test Baseline heart rate 124/71 mmHg Baseline heart rate 64 beats a minute patient was tilted upright at an angle of 70 per protocol no symptoms no change in blood pressure heart rate No evidence for neurocardiogenic syncope Impression Normal heart rate and blood pressure response to upright tilting Patient complained of several episodes of dizziness during the test, but this was not accompanied by any change in heart rate and blood pressure Anesthesia: none Disposition: same day
== END ==
LOC: CATHEP 09:28
PROVIDERS: ATTEND Internal Medicine Clinical Cardiac Electrophysiology
DX: R42 Dizziness and giddiness (principal); R55 Syncope and collapse; R00.2 Palpitations; R94.31 Abnormal electrocardiogram [ECG] [EKG]; Z86.718 Personal history of other venous thrombosis and embolism; J45.909 Unspecified asthma, uncomplicated; E78.5 Hyperlipidemia, unspecified; I10 Essential (primary) hypertension; Z85.831 Personal history of malignant neoplasm of soft tissue; Z79.82 Long term (current) use of aspirin; Z79.899 Other long term (current) drug therapy; Z96.651 Presence of right artificial knee joint
CPT/HCPCS: 93660

== ENCOUNTER → 2019-03-14 | Outpatient (CLI) | payer BC ==
[2019-03-14 10:13] LABS: Basophils % (A) 0 %; Eosinophils # (A) 0.1 k/uL (0-0.7); Eosinophils % (A) 2 %; HCT 46.4 % (39.0-53.0); HGB 15.1 gm/dL (13.0-17.5); Lymphocytes # (A) 1.2 k/uL (1.0-4.8); Lymphocytes % (A) 24 %; MCH 30.3 pg (25.0-35.0); MCHC 32.5 g/dL (31.0-37.0); MCV 93.1 fL (80.0-100.0); Mean Platelet Volume 8.2; Monocytes # (A) 0.3 k/uL (0-1.0); Monocytes % (A) 6 %; Neutrophils # (A) 3.4 k/uL (1.3-7.7); Neutrophils % (A) 67 %; Platelet Count 250 k/uL (150-450); RBC 4.99 m/uL (4.30-5.90); WBC 5.2 k/uL (3.8-10.6)
[2019-03-14 15:58] LABS: Albumin 4.3 g/dL (3.80-4.90); Albumin/Globulin Ratio 2.87 (1.60-3.17); Anion Gap 3.7 mmol/L (4.00-12.00); Calcium 9.1 mg/dL (8.7-10.3); Carbon Dioxide 29.3 mmol/L (21.6-31.8); Globulin 1.5 g/dL (1.6-3.3); LDL Cholesterol,Calculated 88.4 mg/dL (0.0-131.0); Potassium 4.7 mmol/L (3.5-5.5); Total Bilirubin 0.8 mg/dL (0.3-1.2); Total Protein 5.8 g/dL (6.2-8.2); VLDL Calculation 20.6 mg/dL (5.00-40.00)
[2019-03-14 16:18] LABS: T4, Free (Free Thyroxine) 0.8 ng/dL (0.80-1.80)
[2019-03-14 18:01] LABS: Hemoglobin A1C 5.2 % (4.0-6.0)
== END | disposition home or self-care (01) ==
LOC: LABWHC1 08:51
PROVIDERS: ATTEND Internal Medicine Critical Care Medicine
DX: Z00.00 Encounter for general adult medical examination without abnormal findings (principal); F31.2 Bipolar disorder, current episode manic severe with psychotic features; G47.00 Insomnia, unspecified; J45.909 Unspecified asthma, uncomplicated; I10 Essential (primary) hypertension
CPT/HCPCS: 84439; 80061; 80053; 84443; 85025; 82306; 83036; 36415; G0103

== ENCOUNTER → 2022-09-15 | Outpatient (CLI) | payer MEDICARE ==
[2022-09-15 15:15] LABS: Basophils # (A) 0.03 X 10*3/uL (0.00-0.10); Basophils % (A) 0.5 %; Eosinophils % (A) 1.6 %; HCT 47.3 % (39.6-50.0); HGB 15.4 g/dL (13.0-17.0); Immature Grans, Automated 0.3 %; Lymphocytes # (A) 1.35 X 10*3/uL (0.90-5.00); Lymphocytes % (A) 21.6 %; MCH 29.7 pg (27.0-32.0); MCHC 32.6 g/dL (32.0-37.0); MCV 91.1 fL (80.0-97.0); Mean Platelet Volume 11.2 fL (9.5-12.2); Monocytes # (A) 0.46 X 10*3/uL (0.20-1.00); Monocytes % (A) 7.4 %; NRBC Per 100 WBC 0 /100 WBCS (0.0-0.0); Neutrophils # (A) 4.29 X 10*3/uL (1.80-7.70); Neutrophils % (A) 68.6 %; Platelet Count 247 X 10*3/uL (140-440); RBC 5.19 X 10*6/uL (4.40-5.60); WBC 6.25 X 10*3/uL (4.50-10.00)
[2022-09-15 15:49] LABS: ALT 28 U/L (10-49); AST 26 U/L (14-35); African American GFR (CKD) 112.6 (60.0-200.0); Albumin 4.5 g/dL (3.8-4.9); Albumin/Globulin Ratio 2.11 (1.60-3.17); Alkaline Phosphatase 80 U/L (41-126); BUN/Creat Ratio 18.23 Ratio (12.00-20.00); Blood Urea Nitrogen 14.8 mg/dL (9.0-27.0); Calcium 9.5 mg/dL (8.7-10.3); Chloride 103 mmol/L (96-109); Globulin 2.1 g/dL (1.6-3.3); Glucose 102 mg/dL (70-110); LDL Cholesterol,Calculated 158.6 mg/dL (0.0-131.0); Non-African American GFR(CKD) 97.2 (60.0-200.0); Potassium 4.4 mmol/L (3.5-5.5); Sodium 142 mmol/L (135-145); Total Protein 6.6 g/dL (6.2-8.2)
== END | disposition home or self-care (01) ==
LOC: LABWHC1 08:40
PROVIDERS: ATTEND Internal Medicine Critical Care Medicine
DX: Z00.00 Encounter for general adult medical examination without abnormal findings (principal); Z12.5 Encounter for screening for malignant neoplasm of prostate; I10 Essential (primary) hypertension; E78.1 Pure hyperglyceridemia; G47.00 Insomnia, unspecified; F32.9 Major depressive disorder, single episode, unspecified; J45.909 Unspecified asthma, uncomplicated
CPT/HCPCS: 84439; 80061; 80053; 84443; 85025; 82306; 83036; 36415; G0103

== ENCOUNTER → 2022-10-21 | Outpatient (CLI) | payer MEDICARE ==
[2022-10-21 08:39] VITALS: BP 138/90; PULSE 69; RESP 18; TEMP 98.5
--- NOTE | 2022-10-21 14:30 | P.PAINPG ---
PQRS Measure Charge Sheet Comment: HISTORY OF PRESENT ILLNESS: 57 yr old male w at side as a referral from Dr Deleon presents today w severe and chronic LBP secondary to DDD, spondylosis and facet arthropathy without myelopathy for evaluation. Pt states pain level is at 9/10 in intensity, constant, localized in the R lower lumbar spine, achy/sharp in character w shooting pain towards the R hip. Pain is provoked by sitting. He must sit veered to the L for pain relief. Pain is alleviated by PT x 6 wks which was completed in Sep 2022 without relief, home exercise as tolerated, heat, +THC products, medications (Motrin, Aleve), topicals, repositioning and rest. PMH: Asthma, Cancer, DVT, Hyperlipidemia, HTN PSH: R Knee Replacement x2, BL Knee Arthroscopies, Trigger Finger Release x5, Hernia Repair SH: Negative x3 FH: Non contributory All: NKDA Meds: See list REVIEW OF ORGAN SYSTEMS: CONSTITUTIONAL: No fevers or chills. No recent weight loss. NEUROLOGICAL: + numbness and tingling along the distal extremities. No seizure disorders or headaches. MUSCULOSKELETAL: + pain PSYCHIATRIC: Denies current depression or suicidal thoughts. Physical Examinations : Constitutional : Cooperative , not in acute distress . Neurologic : Cranial nerve II to XII intact. No focal neurological deficits. Psychiatric : alert & oriented x 3. Matching mood & appropriate affect. Judgment & insight intact. Musculoskeletal : Cervical Spine Motor strength in the deltoid and biceps: Normal right side. Normal Left side Motor strength biceps and the wrist extensors: Normal right side . Normal left side Motor strength in the triceps muscle: Normal right side. Normal left side Deep tendon reflexes: Normal at the biceps. Normal at Brachioradialis. Normal at triceps Vertebral body tenderness to deep palpation over Cervical facet loading test: positive bilaterally Spurling test: positive bilaterally Neck distraction test: positive bilaterally Quan sign: positive bilaterally Lumbar spine Motor strength lower extremities ,thigh and legs 5/5 Right side , 5/5 Left side Deep tendon reflexes : Normal Knee Jerk. Normal Ankle Jerk Vertebral body tenderness over L5 Lumbar facet Loading Test: positive Right / positive Left Range of motion of the lumbar spine Flexion 30 degrees, extension 10 degrees Straight Leg Raise test: Left/ Right positive at degree Arthur test: positive right / positive left. Severe tenderness over the Sacroiliac joint on the Right / Left sides Dakotalen test: positive bilaterally Seated flexion test: positive bilaterally. Sacral spine : Severe tenderness over the Sacroiliac joint: right side / left side Range of motion: Flexion of the lumbar spine <60 degrees Range of motion: Extension of the lumbar spine <20 degrees Gaenslen's Test positive Al's Test positive Arthur test: positive right side / left side Thigh Thrust Test Sacral Thrust Test Imaging: Obtaining Lumbar MRI from [facility] [place] [facility] Assessment/ Plan : Lumbar DDD Recommendation of R TFESI L5-S1. May need a series of injections, up to 3 within a 6 mo peirod, for optimal pain relief. Risks, benefits of procedure discussed and patient verbalized understanding. Admits aspirin or anti- coagulant use or medical history of diabetes. Protocol for discontinuation/ continuation of medications giulia procedure discussed. All questions answered. I have spent greater than 30 minutes on patient care today. Dr Madsen was available by phone for the evaluation of this patient. The time was used to review the medical records including relevant urine studies and Prescription history (MAPs), review of the available imaging, evaluation and examination of the patient, coordination of care with the medical staff and if applicable referring physicians, as well as creation of the medical record - Pain Location Right Lower Back Non-Pharmacological Interventions: Heat, Home Exercise, Inactivity, Physical Therapy, Position/Reposition, Stretching Pharmacological Interventions: PRN Medication, Topical Medication PQRS Narrative: Smoking Status Never smoker Home Medications: Ambulatory Orders Atorvastatin [Lipitor] 40 mg PO HS 05/27/15 Montelukast [Singulair] 10 mg PO HS 05/27/15 Multivitamin [Men's Multi-Vitamin] 1 tab PO DAILY 05/27/15 Aspirin EC [Ecotrin Low Dose] 81 mg PO HS 02/11/18 Cholecalciferol (Vitamin D3) [Vitamin D3] 2,000 unit PO DAILY 02/11/18 Losartan-Hctz 50-12.5 mg [Hyzaar 50-12.5] 1 tab PO DAILY 02/11/18 Metoprolol Succinate (ER) [Toprol Xl] 25 mg PO DAILY 02/24/18 Budesonide/Formoterol Fumarate [Symbicort 80-4.5 Mcg Inhaler] 1 puff INHALATION DAILY 02/28/18 Controlled Substance Measures - Controlled Substance Measures Is patient prescribed a controlled substance at discharge?: No
== END ==
LOC: PNWHC3 07:32
PROVIDERS: ATTEND Specialist
DX: M51.36 Other intervertebral disc degeneration, lumbar region (principal); Z79.82 Long term (current) use of aspirin; J45.909 Unspecified asthma, uncomplicated; E78.5 Hyperlipidemia, unspecified; I10 Essential (primary) hypertension; Z79.899 Other long term (current) drug therapy; I82.409 Acute embolism and thrombosis of unspecified deep veins of unspecified lower extremity
CPT/HCPCS: 99202

== ENCOUNTER 2022-11-23 07:25 | Day surgery (SDC) | payer MEDICARE ==
[~2022-11-23 07:25] MED LIST changes: +LACTATED RINGERS 1,000 ML IV SCH; +LIDOCAINE 1% (10MG/ML) FOR IV START INTRADERMA PRN; -SODIUM CHLORIDE 0.9% 1,000 ML IV ONE; -SODIUM CHLORIDE 0.9% 1,000 ML IV SCH; -SODIUM CHLORIDE 0.9% 500 ML IV ONE
[2022-11-23] MEDS ORDERED: LACTATED RINGERS 1,000 ML IV ONE (07:40)
[2022-11-23 07:46] VITALS: RESP 16; TEMP 98
[2022-11-23] MEDS ORDERED: IOPAMIDOL M200 10 ML VIAL ONE (07:55)
[2022-11-23] MEDS ORDERED: MIDAZOLAM 2 MG/2 ML VIAL ONE (07:55)
[2022-11-23] MEDS ORDERED: methylPREDNISolone ACETATE 80 MG/ML 1 ML VIAL ONE (07:55)
[2022-11-23] MEDS ORDERED: fentaNYL (PF) 50 MCG/ML 2 ML AMP ONE (07:55)
--- NOTE | 2022-11-23 08:09 | P.PCN ---
Date of Procedure: 11/23/22 Procedure(s) Performed: PREOPERATIVE DIAGNOSIS: 1-Lumbar radiculopathy . 2-lumbar degenerative disc diseas. POSTOPERATIVE DIAGNOSIS: Same as preoperative diagnoses. PROCEDURE 1. Transforaminal epidural steroid injection under fluoroscopic guidance at right L5-S1 level. (Fluoroscopy images stored on file in the radiology Department ) 2. Lumbar epidurogram . ANESTHESIA: Local with 1% lidocaine 3 ml , moderate sedation with intravenous Versed 2 mg and fentanyle 50 micrograms. Sedation start time : 07:57 . Sedation. stop time : 08:05 . EBL: Minimal PROCEDURE INDICATION: The patient with low back pain and radiculopathy symptoms unresponsive to conservative treatment. PROCEDURE DESCRIPTION / TECHNIQUE: The patient was seen and identified in the preoperative area. Risks, benefits, complications, and alternatives were discussed with the patient. The patient agreed to proceed with the procedure and signed the consent. IV was started, and vital signs were stable. Patient was taken to the OR and time out was completed. The patient was placed in the prone position on procedure table and a pillow was placed under the abdomen to reduce lumbar lordosis. The lumbosacral area was prepped and draped in the usual sterile fashion. Critical pause was taken. Vital signs were closely monitored during the procedure. Conscious sedation was used during the procedure to decrease patient s anxiety. Using oblique fluoroscopy, the chin of the ``Juventino dog at Right L5-S1 level was identified, and the skin and deeper tissues just below was localized with 1% lidocaine. Subsequently, a 22-gauge 5-inch spinal needle was advanced under a tunneled view fluoroscopic guidance just underneath the chin of the `Adalidy dog at the right L5-S1 Under lateral fluoroscopy, the needle was then advanced to the posterior border of the interforaminal space. After negative aspiration of CSF and blood and with no paresthesias, 1 mL Isovue 200 contrast dye was injected excellent epidurogram and outlining of the nerve root Subsequently, 3 mL of block solution containing 80 mg Depo-Medrol and 2 mL of 0.9% normal saline PF was injected. Needle was removed . At the end of the procedure, skin was cleansed, and bandages were applied. COMPLICATIONS:none DISPOSITION / PLANS: The patient was placed in a supine position and transferred to the recovery area in a stable condition for observation. There was no evidence of lower extremity motor or sensory deficit after the procedure. Patient was discharged from the recovery room after meeting discharge criteria. Home discharge instructions were given to the patient by the staff. The patient was reexamined prior to discharge.
[2022-11-23] MEDS ORDERED: IV FLUID CONTINUATION 1,000 ML IV ONE (08:12)
[2022-11-23 08:27] VITALS: BP 137/84; PULSE 60
--- NOTE | 2022-11-23 08:33 | FL ---
EXAMINATION TYPE: FL guided pain mgmt statistic DATE OF EXAM: 11/23/2022 HISTORY: Fluoroscopy time 17 seconds of fluoroscopy provided. IMPRESSION: 1. Fluoroscopy time.
== END 2022-11-23 08:41 | disposition home or self-care (01) ==
LOC: ORPAIN 07:25
PROVIDERS: ATTEND Specialist
DX: M51.16 Intervertebral disc disorders with radiculopathy, lumbar region (principal)
CPT/HCPCS: 99152; 64483; J2250; J1040; J3010; Q9966

== ENCOUNTER 2023-01-18 05:54 | Day surgery (SDC) | payer MEDICARE ==
[2023-01-18] MEDS ORDERED: LACTATED RINGERS 1,000 ML IV SCH (06:11)
[2023-01-18] MEDS ORDERED: LIDOCAINE 1% (10MG/ML) FOR IV START INTRADERMA PRN (06:11)
[2023-01-18 06:28] VITALS: TEMP 97.6
[2023-01-18] MEDS ORDERED: MIDAZOLAM 2 MG/2 ML VIAL ONE (06:58)
[2023-01-18] MEDS ORDERED: methylPREDNISolone ACETATE 80 MG/ML 1 ML VIAL ONE (06:58)
[2023-01-18] MEDS ORDERED: IOPAMIDOL M200 10 ML VIAL ONE (06:58)
[2023-01-18] MEDS ORDERED: fentaNYL (PF) 50 MCG/ML 2 ML AMP ONE (06:58)
--- NOTE | 2023-01-18 07:12 | P.PCN ---
Date of Procedure: 01/18/23 Procedure(s) Performed: PREOPERATIVE DIAGNOSIS: 1-Lumbar radiculopathy . 2-lumbar degenerative disc diseas. POSTOPERATIVE DIAGNOSIS: Same as preoperative diagnoses. PROCEDURE 1. Transforaminal epidural steroid injection under fluoroscopic guidance at right L5-S1 level. (Fluoroscopy images stored on file in the radiology Department ) 2. Lumbar epidurogram . ANESTHESIA: Local with 1% lidocaine 3 ml , moderate sedation with intravenous Versed 2 mg and fentanyle 100 micrograms. Sedation start time : 07:01 . Sedation. stop time : 07:10 . EBL: Minimal PROCEDURE INDICATION: The patient with low back pain and radiculopathy symptoms unresponsive to conservative treatment. PROCEDURE DESCRIPTION / TECHNIQUE: The patient was seen and identified in the preoperative area. Risks, benefits, complications, and alternatives were discussed with the patient. The patient agreed to proceed with the procedure and signed the consent. IV was started, and vital signs were stable. Patient was taken to the OR and time out was completed. The patient was placed in the prone position on procedure table and a pillow was placed under the abdomen to reduce lumbar lordosis. The lumbosacral area was prepped and draped in the usual sterile fashion. Critical pause was taken. Vital signs were closely monitored during the procedure. Conscious sedation was used during the procedure to decrease patient s anxiety. Using oblique fluoroscopy, the chin of the ``Juventino dog at Right L5-S1 level was identified, and the skin and deeper tissues just below was localized with 1% lidocaine. Subsequently, a 22-gauge 5-inch spinal needle was advanced under a tunneled view fluoroscopic guidance just underneath the chin of the `Adalidy dog at the right L5-S1 Under lateral fluoroscopy, the needle was then advanced to the posterior border of the interforaminal space. After negative aspiration of CSF and blood and with no paresthesias, 1 mL Isovue 200 contrast dye was injected excellent epidurogram and outlining of the nerve root Subsequently, 3 mL of block solution containing 80 mg Depo-Medrol and 2 mL of 0.9% normal saline PF was injected. Needle was removed . At the end of the procedure, skin was cleansed, and bandages were applied. COMPLICATIONS:none DISPOSITION / PLANS: The patient was placed in a supine position and transferred to the recovery area in a stable condition for observation. There was no evidence of lower extremity motor or sensory deficit after the procedure. Patient was discharged from the recovery room after meeting discharge criteria. Home discharge instructions were given to the patient by the staff. The patient was reexamined prior to discharge.
[2023-01-18] MEDS ORDERED: IV FLUID CONTINUATION 700 ML IV ONE (07:16)
[2023-01-18 07:40] VITALS: BP 153/89; PULSE 65; RESP 20
--- NOTE | 2023-01-18 07:41 | FL ---
Intraoperative/procedural fluoroscopic services were provided for right transforaminal epidural injec tion. Total fluoroscopy time is 7 seconds with a total of 1 submitted image to PACS. Please see the o perative note for further details.
== END 2023-01-18 07:45 ==
LOC: ORPAIN 05:54
PROVIDERS: ATTEND Specialist
DX: M51.16 Intervertebral disc disorders with radiculopathy, lumbar region (principal)
CPT/HCPCS: 64483; J2250; J1040; J3010; Q9966

== ENCOUNTER → 2023-02-09 | Outpatient (CLI) | payer MEDICARE ==
[2023-02-09 09:05] VITALS: BP 156/91; PULSE 69; RESP 18; TEMP 98.3
--- NOTE | 2023-02-09 09:18 | P.PN ---
Subjective Progress Note Date: 02/09/23 This is a 47-year-old gentleman with history of right lower back pain with radiation to the right lower extremity down to the right ankle with occasional numbness and tingling in the right leg. The patient also gets sharp shooting pain down to the right knee occasionally. We tried interlaminar and transforaminal epidural steroid injection which gave him good but temporary relief of pain. His pain has been mostly in the right buttock area and more intense at this spot. Patient denies new-onset weakness, bowel/bladder incontinence, or any other signs or symptoms of cauda equina syndrome. There are no signs of acute intoxication, and no indications of medication diversion or overuse. In addition to above, 13-point review of systems is also negative for chest pain, shortness of breath, changes in vision, changes in hearing, new onset weakness, abdominal pain, diarrhea, extreme fatigue, malaise, fever, skin changes, homicidal or suicidal ideation, or bowel or bladder incontinence. Vital Signs: Reviewed in EMR Gen: AAOx3, NAD HEENT: PERRLA,hearing grossly normal Pulm: resp unlabored Neck: supple, trachea midline Neuro exam of the lower extremities: Absent right knee reflex and right ankle reflex. 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 Explanation: When patients on opioids, opioid and psychological risk scores were reviewed. Diagnoses, prognoses, and multiple treatment options including but not limited to physical therapy, interventional therapies, adjuvant medical therapies, narc otic medication therapies, and surgery were discussed with the patient and all questions were answered to the patient's satisfaction. 2. Opioid agreement:When patients are prescribed opoids through our clinic, opioid agreement is signed with the patient and the patient is warned not to use opioids while driving or before driving and not to combine opioids with benzodiazepines or alcohol. 3. Counseling: When patient is smoking or obese, the patient was counseled extensively on SMOKING CESSATION, BODY MASS INDEX, EXERCISE. Specifically, the patient was instructed regarding the importance of smoking cessation, obesity, and exercise in the context of both chronic pain and overall health. 4. Procedures: General for a right sacroiliac joint steroid injection under fluoroscopic guidance 5. Consultations: None 6. Investigations: None 7. Medications: None prescribed 8. Disposition: Proceed with the above-mentioned procedure as soon as possible 9. Maps were reviewed and were appropriate. PQRS measures: 1-Patient's medications are documented in the chart. 2-Tobacco use is negative, counseling given 3-Patient has had a pneumococcal vaccine. 4-Advanced care planning discussed, patient unable to give 5-Opioid contract signed with the patient. 6-Pain positive, follow-up visit or procedure scheduled 7-Patient's blood pressure measured and documented . The patient will follow up with his primary care physician. 8-Patient's weight was measured. Patient instructed to follow up with PCP. 9-Patient WAS NOT identified as an unhealthy alcohol user. Objective - Vital Signs Vital signs: Vital Signs Temp 98.3 F 02/09/23 08:52 Pulse 69 02/09/23 08:52 Resp 18 02/09/23 08:52 BP 156/91 02/09/23 08:52 Pulse Ox 99 02/09/23 08:52 FiO2 Intake & Output 02/08/23 02/09/23 02/09/23 18:59 06:59 18:59 Weight 129.274 kg
== END ==
LOC: PNWHC3 07:46
PROVIDERS: ATTEND Anesthesiology
DX: M46.1 Sacroiliitis, not elsewhere classified (principal); M47.816 Spondylosis without myelopathy or radiculopathy, lumbar region; Z96.653 Presence of artificial knee joint, bilateral; Z96.641 Presence of right artificial hip joint
CPT/HCPCS: 99211

== ENCOUNTER → 2023-02-23 | Outpatient (CLI) | payer MEDICARE ==
--- NOTE | 2023-02-23 13:46 | US ---
EXAMINATION TYPE: US venous doppler duplex LE RT DATE OF EXAM: 02/23/2023 1:25 PM COMPARISON: US CLINICAL INDICATION: Male, 57 years old with history of M79.662 PAIN RT LOWER LEG; Pt states right le g pain, mostly within right calf SIDE PERFORMED: Right TECHNIQUE: The lower extremity deep venous system is examined utilizing real time linear array sonog samuel with graded compression, doppler sonography and color-flow sonography. VESSELS IMAGED: Common Femoral Vein Deep Femoral Vein Greater Saphenous Vein * Femoral Vein Popliteal Vein Small Saphenous Vein * Proximal Calf Veins (* superficial vessels) Right Leg: Negative for DVT Results called to Evelyn at Dr's office at time of exam IMPRESSION: 1. Right lower extremity ultrasound negative for deep venous thrombosis.
== END | disposition home or self-care (01) ==
LOC: RADUSWWP 12:47
PROVIDERS: ATTEND Internal Medicine Critical Care Medicine
DX: M79.662 Pain in left lower leg (principal)

== ENCOUNTER → 2023-03-28 | Outpatient (CLI) | payer MEDICARE ==
[2023-03-28 09:09] VITALS: BP 136/92; PULSE 68; RESP 18; TEMP 98.1
--- NOTE | 2023-03-28 13:29 | P.PAINPG ---
PQRS Measure Charge Sheet Comment: A 57 yr old male with a history of severe and chronic LBP x 2 yrs secondary to lumbar DDD and spondylosis with facet arthropathy without myelopathy presents today for evaluation s/p R SI injection. Pt states she experienced 80 % pain relief x 2 wks s/p procedure. Pain level is provoked at 7 /10 in intensity, constant, localized in the R lower lumbar spine, sharp in character w shooting towards the R hip and R leg. Pain is provoked by sitting/ driving in excess of 30 min. Pain is alleviated with PT x 6 wks in Sep 2022, heat, ice, medications (Flex, Ibu), topical, laying supine, reclining, repositioning and rest. Pt also admits to calf cramping, tightness w RLE extension. Interventional pain procedures completed include R SI injection x1, R TFESI L5- S1 x2 Patient is currently on Flexeril, Ibu Patient denies any side effects of the medication(s), denies excessive drowsiness or sleepiness, denies suicidal ideation and reports that the current pain medication is helping to control the pain and improve activities of daily living. Patient denies any motor or sensory deficits. Patient denies any fever or night sweats, denies any change in the bowel movements or urination. Physical Examination: -Constitutional: Cooperative. Not in acute distress . - Neurologic: Cranial nerve II to XII intact. No focal neurological deficits. - Psychatric: Alert & oriented x 3. Matching mood & appropriate affect. Judgment and insight intact. - Musculoskeletal: Cervical spine: Muscle bulk/ tone/ strength in the bilateral upper extremities normal Vertebral body tenderness to palpation over Spurling test positive Distraction test positive Facet loading test positive TTP Thoracic spine Muscle bulk / tone/ strength in the bilateral paraspinal muscles normal Vertebral body tender to palpation over Facet loading test positive TTP Lumbar spine: Motor bulk/ tone/ strength lower extremities , thigh and legs : 5/5 Deep tendon reflexes : Normal Knee Jerk. Normal Ankle Jerk . Vertebral body tenderness to palpation over L5 + Alba Test positive on R Lumbar Facet Loading Test positive Straight Leg Raise: positive at 30 degrees right side/ left side Gaenslen's Test positive Sacral spine : Severe tenderness over the Sacroiliac joint: right side / left side Range of motion: Flexion of the lumbar spine <60 degrees Range of motion: Extension of the lumbar spine <20 degrees Gaenslen's Test positive right side / left side Arthur test: positive right side / left side Thigh Thrust Test positive right side / left side Sacral Thrust Test positive right side / left side Assessment and plan: Chronic LBP secondary to lumbar DDD, spondylosis with facet arthropathy without myelopathy Recommendation of R TFESI L5-S1 #3. May need a series of injections, up to 4 within a 12 mo period, for optimal pain relief. Risks, benefits of procedure discussed and pt verbalized understanding. Admits to anticoagulant use or medical history of diabetes. Protocol for discontinuation/ continuation of medications giulia procedure discussed. Minimal anesthesia provided, if clinically indicated, consisting of Versed and Fentanyl. All questions answered. I have spent less than 30 minutes on patient care today. Dr Madsen was available by phone for the evaluation of this patient. The time was used to review the medical records including relevant urine studies and Prescription history (MAPs), review of the available imaging, evaluation and examination of the patient, coordination of care with the medical staff and if applicable referring physicians, as well as creation of the medical record PQRS Narrative: Smoking Status Never smoker Hx Alcohol Use (MH) No Home Medications: Ambulatory Orders Atorvastatin [Lipitor] 40 mg PO HS 05/27/15 Cholecalciferol (Vitamin D3) [Vitamin D3] 2,000 unit PO DAILY 02/11/18 Ibuprofen [Motrin Ib] 600 mg PO Q8H PRN 10/21/22 Naproxen Sodium [Aleve] 220 mg PO Q12HR PRN 10/21/22 Sertraline [Zoloft] 100 mg PO DAILY 10/21/22 Albuterol Inhaler [Ventolin Hfa Inhaler] 1 - 2 puff INHALATION Q6H PRN 11/18/22 Losartan-Hctz 50-12.5 mg [Hyzaar 50-12.5] 50 mg PO DAILY 03/10/23 Controlled Substance Measures - Controlled Substance Measures Is patient prescribed a controlled substance at discharge?: No
== END ==
LOC: PNWHC3 07:49
PROVIDERS: ATTEND Specialist
DX: M51.36 Other intervertebral disc degeneration, lumbar region (principal); M47.816 Spondylosis without myelopathy or radiculopathy, lumbar region; G89.29 Other chronic pain
CPT/HCPCS: 99211

== ENCOUNTER → 2023-05-04 | Outpatient (CLI) | payer MEDICARE ==
--- NOTE | 2023-05-05 11:39 | CT ---
EXAMINATION TYPE: CT lumbar spine wo con DATE OF EXAM: 05/04/2023 COMPARISON: None HISTORY: LOWER BACK PAIN X [address] DLP: 1984.60 mGycm CONTRAST: None TECHNIQUE: CT of the lumbar spine is performed on a spiral scan at 3 mm thick sections. Reconstructed images are performed in the coronal and sagittal planes. FINDINGS: T12-L1: No focal disc herniation or significant disc bulge is evident. No spinal canal stenosis or neural foraminal stenosis is present. L1-L2: Hemangiomas within the L1 vertebral body. Minimal disc bulge may be present with anterior thec al sac contact. No focal disc herniation is evident. Disc space narrowing is present. No spinal canal stenosis or neural foraminal stenosis is present L2-L3: There is a grade 1 retrolisthesis of L2 posteriorly on L3. There is loss of disc height throug h this level. Disc uncovering has mild anterior thecal sac flattening. No AP spinal canal stenosis pr esent. Mild facet hypertrophy is present with ligamentum flavum laxity. Severe bilateral foraminal st enosis is present. L3-L4: There is mild narrowing of disc height with some mild vacuum disc phenomenon. Broad-based disc bulge has mild anterior thecal sac flattening. Ligamentum flavum laxity is present. Moderate bilater al foraminal narrowing is present. L4-L5: Broad-based disc bulge has mild anterior thecal sac flattening. Mild facet hypertrophy is pres ent. No posterior lateral thecal sac compression is evident. No spinal canal stenosis is present. Mod erate left and moderate to severe right foraminal stenosis is present. Schmorl's node is present of L 4 superior endplate L5-S1: Disc bulge is present with intrathecal sac contact. No AP spinal canal stenosis is present. Mo derate left and moderate to severe right foraminal stenosis is present. Spondylosis is present with its anterior vertebral body spurring at L2 and L3. IMPRESSION: 1. Grade 1 retrolisthesis of L2 posteriorly on L3. 2. Hemangioma L1. 3. Multilevel foraminal stenosis. This appears severe bilaterally at L2-3 and moderate to severe on t he right at L5-S1. 4. Degenerative disc changes greatest at L2-3.
== END | disposition home or self-care (01) ==
LOC: RADCTMAIN 17:14
PROVIDERS: ATTEND Nurse Practitioner Family
DX: M48.061 Spinal stenosis, lumbar region without neurogenic claudication (principal); D18.09 Hemangioma of other sites; M47.26 Other spondylosis with radiculopathy, lumbar region; M43.16 Spondylolisthesis, lumbar region
CPT/HCPCS: 72131

== ENCOUNTER 2023-05-31 06:28 | Day surgery (SDC) | payer MEDICARE ==
[2023-05-25 17:23] VITALS: BMI 32.9
[~2023-05-31 06:28] MED LIST changes: +Pre Op ABX Message 1 EACH MISC MISCELLANE ONE
[2023-05-31 06:49] VITALS: TEMP 97.4
--- NOTE | 2023-05-31 06:58 | P.HPOR ---
History of Present Illness H&P Date: 05/06/23 .D:Date: 05/06/23 : 08:19am .T:Title: [facility] Date of :[birth year] [id number]: NKDA Age: 58 year Height: 6'6" Weight: 290 lbs BMI: 33.51 kg/m2 Occupation: Retired VAS: 4 CHIEF COMPLAINT: Re-check on low back pain and review CT lumbar results DOI: Chronic DOS: n/a Duration of current treatment regiment: > 6 months HISTORY: Xrays No new xrays taken in office Trauma or injury No Work-Related No Pain description Constant & aching. Location Lateral Patient notes that their pain radiates to right lower extremity Activity Modification No Hand Dominance Right TREATMENTS COMPLETED: 6 weeks of PT completed? Month and Year of last PT date? Yes How many sessions? 12 Did it help? No Physician directed home exercise completed? Yes, Patient has trialed the physician directed home exercise program without relief of their symptoms. Medications Yes:List: Flexeril & Gabapentin Alternative interventions Chiropractic:No Massage therapy:No R.I.C.E:yes Brace:No Injections Yes How many? 2 Did they help?No RFA:No SUBJECTIVE: Mr. Galarza returns to the office today for a re-check on their low back pain and to review recent CT scan results. The patient reports a continued constant, ache-like pain throughout the low back. The patient also reports continued radiating pain down into the right lower extremity, associated with numbness and tingling. The patient reports that his symptoms have been gradually worsening since their initial onset approximately 2 years ago. The patient denies experiencing any injury or trauma to the low back or lower extremities. The patient notes that his symptoms are exacerbated by prolonged sitting, getting up from chairs, or when going up the stairs, which makes it very difficult for him to complete his regular activities of daily living. The patient is having moderate sleep disturbances due to his ongoing symptoms. The patient has trialed conservative measures in the form of physical therapy, at home stretches/exercises, at home heat/ice therapies, lumbar epidural steroid injections, and medication management. The patient states that he has experienced no significant or sustained relief from trialing conservative treatment options. For their symptoms the patient has been taking Flexeril and Gabapentin. Patient denies trialing any other modalities at this time. Otherwise the patient denies any f/c/sob/cp, no bladder or bowel retention/incontinence, no perineal numbness/tingling, and ambulates independently. HPI: Mr. Galarza presents to the office on 05/02/2023 for an evaluation of their low back pain. Patient reports a constant ache lumbar pain ongoing for 2 years with an onset after his right total hip arthroplasty. In addition to their lumbar pain, they do report that it radiates into the right lower extremity, associated without numbness and tingling. Patient reports a tearing pain that radiates on the right lateral low back up into the right rib cage. Overall the patient has seen a progressive increase in symptoms since their onset. Mr. Galarza symptoms are exacerbated with prolong activity, due to this they notes that it is increasingly difficult for Mr. Galarza to complete many of their daily tasks. Patient is having mild sleep disturbances as well due to their ongoing pain and associated symptoms. 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 Regarding treatments, the patient has previously trialed the above listed modalities. Patient denies trialing any other modalities at this time. For their symptoms, the patient has been taking Flexeril, Aleve, and Motrin. Otherwise the patient denies any f/c/sob/cp, no bladder or bowel retention/incontinence, no perineal numbness/tingling, and ambulates independently. The patients' past social, medical, family, surgical history, as well as review of systems, have been reviewed. Please refer to the Neurosurgery History and Physical form that has been scanned in to our electronic medical record system. 14 points review of systems completed and as stated in HPI, all other systems reviewed are negative. Social History: Reviewed, see appropriate section of the chart for details. P3 Family History: Reviewed, see appropriate section of the chart for details. P2 Past Medical History: Reviewed, see appropriate section of the chart for details. [id number] Medications: Rx: albuterol sulfate HFA 90 mcg/actuation aerosol inhaler Ref: 0 Rx: atorvastatin 40 mg tablet Ref: 0 Rx: cyclobenzaprine 10 mg tablet Ref: 0 Rx: losartan 50 mg-hydrochlorothiazide 12.5 mg tablet Ref: 0 Rx: sertraline 100 mg tablet Ref: 0 Rx: Symbicort 160 mcg-4.5 mcg/actuation HFA aerosol inhaler Ref: 0 Rx: Viagra Ref: 0 Rx: gabapentin 300 mg capsule Ref: 0 PHYSICAL EXAMINATION: General:Awake, alert, appropriate for age, in no acute distress. HEENT:No unusual neck masses around region of lateral neck triangle, thyroid, supraclavicular groove Heart:Regular rate and rhythm, normal S1, S2 and no murmur/gallop. Lungs:Clear to auscultation bilaterally with no use of accessory muscles. Extremities: Skin warm and dry without acute lesions, coloration, temperature, skin intact, no tenderness or erythema Integument: Hairy patches: ABSENT Dorsal skin dimples:ABSENT Cafe au lait spots:ABSENT Surgical incisions:n/a Palpation: Please see Pain drawing on Intake sheet for further detail. Midline spinal tenderness:No E6 Cervical Tenderness: No E6 Paralumbar tenderness:Yes E6 Parathoracic tenderness:No E6 Buttocks tenderness:No E6 Sacroiliac Tenderness:yes Laterality:Right POSTURAL and MUSCULO-SKELETAL EVALUATION: Coronal Balance:NEUTRAL Recumbent testing:Patient isable to lay flat on back Sagittal Balance:NEUTRAL Shoulder Profile: LEVEL Pelvic Girdle: LEVEL Neck ROM:UNRESTRICTED Lumbar ROM:RESTRICTED Shoulder ROM:Symmetrical Hip ROM: Symmetrical Knee ROM:Symmetrical Hands: Normal appearance, Symmetrical Feet:Normal appearance, Symmetrical VASCULAR STATUS : LEFT RIGHT Wrist Pulses INTACT INTACT Pedal Pulses (Dors. pedis & post.tibialis) INTACT INTACT Color NORMAL NORMAL Edema Absent Absent NEUROLOGIC EXAMINATION: Mental Status:Awake and alert, fully oriented, with normal attention, concentration and memory, and fluent, appropriate speech. Cranial Nerves: I: Olfactory not tested. II: Visual acuity normal, no visual field deficit noted with confrontation. III,IV: Normal pupillary reflexes & intact extraocular movements without nystagmus. V,: Intact symmetrical facial sensation. VII: Intact symmetrical facial motor movement VIII: Hearing intact. IX,X: Intact gag, swallow, & normal voice. XI: Sternocleidomastoid, trapezius function intact. XII: Tongue midline with normal movements. L'hermitte's Sign: Negative / absent Spurling'Sign: Absent bilaterally. Cubital percussion test: Absent bilaterally. Ba-Tinel sign - Carpal region: Absent bilaterally. Straight Leg Raising: Absent bilaterally. Crossed straight leg raise: negative O8 MOTOR EXAM (0-5/5, N/T Muscle appearance: Symmetrical, without signs of atrophy or dystrophy UPPER EXTREMITY RIGHT LEFT Shoulder Abduction 5/5 5/5 Biceps 5/5 5/5 Triceps 5/5 5/5 Wrist Extension 5/5 5/5 Hand Intrinsic 5/5 5/5 Director Of Maternity Services 5/5 5/5 Hand and finger dexterity intact bilaterally? yes Disdiadochokinesis examination negative bilaterally? yes LOWER EXTREMITY RIGHT LEFT Hip Flexion 5/5 5/5 Knee Extension 5/5 5/5 Knee Flexion 5/5 5/5 Dorsiflexion 5/5 5/5 Plantarflexion 5/5 5/5 EHL 5/5 5/5 FHL 5/5 5/5 Toe heel walk / heel-toe walk intact while maintaining satisfactory balance? yes Squatting/straightening w/o assistance to a min of 60 degree knee flexion? yes Single leg stance:intact Trendelenburg sign: positive, right REFLEXES(0-4/2, NT)Upper ExtremityLower Extremity Right 2 2 Left 2 2 Pathological Reflexes RIGHT LEFT Ba's Absent Absent Clonus Absent Absent Babinski Absent Absent Sensory system (0-4, N/T) Test type RU RADHA RL LL Joint-Position 2 2 2 2 Vibration 2 2 2 2 Pain & LT sense 2 2 2 2 Dermatomal Deficit: None None None None Gait and Functional Evaluation: Ambulatory aids:Independent Romberg's test: Intact bilaterally Steady Gait RADIOGRAPHIC STUDIES: CT [facility] from05/04/2023 of LumbarSpine: IMPRESSION: 1. Grade 1 retrolisthesis of L2 posteriorly on L3. 2. Hemangioma L1. 3. Multilevel foraminal stenosis. This appears severe bilaterally at L2-3 and moderate to severe on the right at L5-S1. 4. Degenerative disc changes greatest at L2-3. IMPRESSION: It was my pleasure to have seen and examined Yasir.I reviewed the patient's clinical syndrome, physical findings, and imaging studies during the appointment today. It is my impression that the patient has a diagnosis of. 1. Right SI joint osteoarthritis 2. L1-4 spondylosis with stenosis I outlined the natural course history without intervention and various interventional options. PLAN: Based on my findings I suggest the following course of action: -I discussed treatment options with the patient, including operative and non- operative options, and they have elected to proceed with the following treatment option: Right SI joint injection The indications, risks, benefits, and alternatives to this procedure were discussed with the patient and family at length. The decision to proceed was made. Consent will be obtained for the procedure. - I have also provided the patient with a referral to pain management for an L2- 3 epidural steroid injection. I discussed with the patient that he should undergo this injection after he has received the right SI joint injection. -Advised patient to continue with supplements, health maintenance, and home exercise programs. Patient expressed understanding and will continue with these modalities. - Ambulate daily. - Take medications as directed. - Ice and rest for pain and swelling control. Spine Surgery Risk Review Mr. Galarza is presenting for evaluation of low back pain and right lower extremity pain, right lower extremity numbness and tingling. It was my pleasure to have seen and examined Mr. Galarza. In our visit today we have had a chance to go over subjective complaints, physical examination findings and treatments including the natural course history without intervention and various interventional options. The patients imaging demonstrates: XRay Lumbar Multiview (AP, Lateral, Flexion, Extension) with AP pelvis; 5 views taken at [facility] on 05/02/23: - Re-reviewed with the patient today. Moderate multilevel and spondylitic changes with preserved alignment. Multilevel diminished disc height. Grade 1 retrolisthesis L2 onto L3 and L3 and L4. Vertebral body heights are preserved. No acute osseous abnormalities. Pelvis: The visualized sacrum and iliac wings are within normal limits. Right total hip arthroplasty present. Hardware is intact, no migration. [facility]completed [facility] from07/31/22 of LumbarSpine: - Re-reviewed with the patient today. Multilevel degenerative and disc indicate disease. there is mild canal stenosis and subarticular zone lateral recess stenosis at L2-L3 as described above. Hemangioma involving the entire L1 vertebral body without transcortical extension. CT scancompleted at [facility] from05/04/2023 of LumbarSpine: IMPRESSION: 1. Grade 1 retrolisthesis of L2 posteriorly on L3. 2. Hemangioma L1. 3. Multilevel foraminal stenosis. This appears severe bilaterally at L2-3 and moderate to severe on the right at L5-S1. 4. Degenerative disc changes greatest at L2-3. On physical exam, Mr. Galarza demonstrates: The patient reports a continued constant, ache-like pain throughout the low back. The patient also reports continued radiating pain down into the right lower extremity, associated with numbness and tingling. The patient reports that his symptoms have been gradually worsening since their initial onset approximately 2 years ago. The patient denies experiencing any injury or trauma to the low back or lower extremities. The patient notes that his symptoms are exacerbated by prolonged sitting, getting up from chairs, or when going up the stairs, which makes it very difficult for him to complete his regular activities of daily living. The patient is having moderate sleep disturbances due to his ongoing symptoms. I have explained to the patient that as their condition progresses it will cause further neurological deficits and eventual paralysis. Based on the patients imaging, physical exam, and the rapid progression and disabling nature of their symptoms, at this time I recommend a procedure in the form of a: right SI joint injection. I discussed the risk and benefits of this procedure at length with Mr. Galarza. The patient agreed to considered pursuing the procedure above mentioned.Questions were invited and answered, and the patient wishes to proceed as outlined below. Currently, I am recommendin.Right SI joint injection 2.Follow up with PCP for surgical clearance 3.Review of surgical risks and benefits as well as an educational packet on the proposed surgical procedure. Risks: All surgical procedures come with inherent risks, including those related to positioning, anesthesia, intraoperative findings, and postoperative complications. It is important to understand that surgery does not come with any guarantee of a successful outcome as complications and adverse events are always possible. The patient was given a handout in office today discussing the surgical procedure and risks associated with the intervention, both of which were discussed with the patient. These risks include but are not limited to the following: * Experiencing same, different or even worse symptoms in back, neck, arms, or legs compared to before surgery. Requiring further surgery or other forms of treatment presently or at some time in the future at same or other levels of the intended spine surgery. On an extreme but fortunately relatively rare basis severe complication such as blindness, stroke, heart attack, temporary and/or permanent nerve injury, paralysis, coma, or may occur, sometimes without known explanation. Surgical complications may include but are not limited to risk of in fection, fluid accumulation in the surgical dissection site, including a seroma or hematoma, that requires additional surgery, wound drainage, bleeding, new numbness or weakness, vision changes/loss, spinal fluid leakage, non-healing and/or infected incision, headaches, difficulty or inability to swallow, hoarseness, hemopneumothorax, pneumothorax, impotence, retrograde ejaculation, vaginal dryness; injury to nerves, spinal cord, blood vessels, lymphatics or other vital organs (i.e., bowel injury, injury to the great vessels); heterotopic bone formation; complications related to the hardware such as screws, rods, cages including misplaced hardware, device failure, instrumentation at the wrong spine level, hardware fracture/breakage, or hardware loosening; vertebral failure of the spinal column above or below the newly placed hardware; retained surgical instrumentations or devices and the need for further surgery. * Medical risks of the planned spine surgery include but are not limited to generalized Infections to the whole body or local areas outside of the surgical site (sepsis), heart attack, bleeding, anaphylaxis, meningitis, seizure, epilepsy, hearing loss, burn ventura, laceration of the head or other areas of the body, bruising, hypersensitivity of the skin, bladder over distension; allergic reaction; shoulder injury related to positioning; fat, blood and air clots to other areas of the body like heart, lungs, brain; failure of internal organs such as lungs, kidneys, liver and excessive bleeding. If blood transfusions are necessary, note that transfusions may ca use intolerance reactions such as anaphylaxis or other complex reactions. Despite best efforts, the results of spine surgery might not heal in terms of bone, soft tissues such as skin, fascia, ligaments, and joints. Additionally, in order to achieve best possible results, spine surgery may be carried out beyond the initially planned levels and involve decompression, fusion including insertion of hardware at levels other than the original intended area of surgical interest change some portions of the procedure in order to ensure the best possible outcomes. With spine surgery and spinal fusion, there are different off label uses of instrumentation (devices, implants and hardware) as well as biological substances (bone morphogenic proteins, demineralized bone matrix) as well as using extra bone from allograft sources (i.e. cadaver bone) or autograft (iliac crest bone, ribs, or the spine itself). The patient has been given information about these practices and their inherent risks and benefits. [facility] is an educational center that serves as a training facility for neurosurgical and orthopedic RADIOLOGY SUPERVISOR and Nursing students. Physician assistants are medically trained surgical providers who function in the outpatient, inpatient, and operating room setting under the direct supervision of the attending surgeon. [facility] has multiple operating rooms with single and overlapping rooms running daily. They currently function under the required guidelines as produced by the [facility] Finance Committee with regards to the overlapping rooms and will continue to comply with changes to this policy as they occur. The requirements include and are complied with as follows: (1) the critical portions of the overlapping rooms will not occur at the same time, (2) the attending physician will be physically present during the critical portions of the procedure and immediately available during the entire case, and (3) a back-up attending is designated should the primary attending not be immediately available. The patient has had a chance to review all the listed information, has been given print outs detailing this information, and has had all his/her questions a nswered to their satisfaction. It was my pleasure to have seen and examined Mr. Galarza. In our visit today we have had a chance to go over my understanding of our patient's current condition, the natural course history without intervention and various interventional options. Questions were invited and answered, and the patient wishes to proceed as outlined above. I have seen and examined the patient for 25 minutes and we have spent more than 50% of the time in repeat and detailed counseling about the patient's condition, its natural course history with out and as much as can be predicted with surgery and re-review of various surgical treatment options. In conclusion, Mr. Galarza requested we proceed with the above suggested surgery and are willing to accept risks and limitations of the suggested surgery as nature of the disease process and our best attempts at treatment for the condition. Thank you again for allowing us to be part of your patient's care. Please don't hesitate to contact me if you have any further questions. Signed and authenticated by: [employer] P:\\\\ppart\\\\[id number]\\\\[id number]\\\\[id number]\\\\[id number]\\\\[id number].PNG \\d Mehdi Castellanos DO [facility] Complex and Minimally Invasive Spine Surgery [address] [place] [id number] Follow- up: After injections Patient Education: (Informational booklet, instructions, etc) given at today's appointment: Yes .ED:Patient Education: Y Medications Reviewed: YES In our visit today Mr. Galarza and I have had a chance to go over my understanding of the patient's current condition, the natural course history without intervention and various interventional options. Questions were invited and answered, and the patient wishes to proceed as outlined above. I will be sure to keep you updated afterMrJosephine Galarza returns here for further follow-up. Thank you again for your referral. Please do not hesitate to contact me if you have any further questions. Signed and authenticated by: Mehdi Castellanos DO [facility] Complex and Minimally Invasive Spine Surgery [address] [place], [place] [id number] This message is confidential, intended only for the named recipient(s) and may contain information that is privileged or exempt from disclosure under applicable law. If you are not the intended recipient(s), you are notified that the dissemination, distribution or copying of this information is strictly prohibited. If you received this message in error, please notify the sender then delete this message. Patient verbalizes understanding of the information discussed. The above note was initiated by Joycelyn Mchugh, physician recording mental health assistant for Dr. Mehdi Castellanos. This note has been reviewed by Dr. Castellanos, who has made his personal changes and impressions for this document. CC: Corey Deleon D.O. 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, left knee pseudo-gout History of Any Multi-Drug Resistant Organisms: None Reported Past Surgical History: Hernia Repair, Joint Replacement, Orthopedic Surgery Additional Past Surgical History / Comment(s): right knee replaced x 2, arthroscopies knees, trigger finger surgeries x5, tumor removed from thigh, PAIN CLINIC PROCEDURES Past Anesthesia/Blood Transfusion Reactions: Postoperative Nausea & Vomiting (PONV) Past Psychological History: Depression Smoking Status: Never smoker Past Alcohol Use History: None Reported Past Drug Use History: Marijuana Additional Drug Use History / Comment(s): occasional use. pt aware not to use 24 hrs before procedure. - Past Family History Mother Family Medical History: Cancer Medications and Allergies Home Medications Medication Instructions Recorded Confirmed Type Atorvastatin [Lipitor] 40 mg PO HS 05/27/15 05/25/23 History Cholecalciferol (Vitamin D3) 2,000 unit PO QAM 02/11/18 05/25/23 History [Vitamin D3] Ibuprofen [Motrin Ib] 600 mg PO Q8H PRN 10/21/22 05/25/23 History Naproxen Sodium [Aleve] 220 mg PO Q12HR PRN 10/21/22 05/25/23 History Sertraline [Zoloft] 100 mg PO QAM 10/21/22 05/25/23 History Albuterol Inhaler [Ventolin Hfa 1 - 2 puff INHALATION Q6H PRN 11/18/22 05/25/23 History Inhaler] Losartan-Hctz 50-12.5 mg [Hyzaar 50 mg PO QAM 03/10/23 05/25/23 History 50-12.5] Allergies Allergy/AdvReac Type Severity Reaction Status Date / Time No Known Allergies Allergy Verified 05/31/23 06:46 Physical Examination Osteopathic Statement: *. No significant issues noted on an osteopathic structural exam other than those noted in the History and Physical/Consult.
[2023-05-31] MEDS ORDERED: ONDANSETRON 4 MG/2 ML VIAL IVP PRN (07:00)
[2023-05-31] MEDS ORDERED: BUPIVACAINE (PF) 0.5% 30 ML VIAL SQ ONE ×3 (07:13→07:39)
[2023-05-31] MEDS ORDERED: methylPREDNISolone ACETATE 40 MG/ML 1 ML VIAL INTRAARTIC ONE ×2 (07:14→07:40)
[2023-05-31] MEDS ORDERED: LIDOCAINE 2%-EPI 1:100,000 20 ML VIAL SQ ONE ×3 (07:14→07:39)
[2023-05-31 07:51] VITALS: RESP 16
[2023-05-31 08:14] VITALS: BP 143/87; PULSE 60
--- NOTE | 2023-05-31 09:08 | FL ---
Intraoperative/procedural fluoroscopic services were provided. Total fluoroscopy time is 3.6 seconds with a total of 1 submitted images to PACS. Please see the operative/procedural note for further deta ils. DAP: 0. 4062 mGym2
--- NOTE | 2023-06-02 08:55 | P.OP ---
Date of Procedure: 05/31/23 Preoperative Diagnosis: 1. RIGHT SIJ OA Postoperative Diagnosis: 1. RIGHT SIJ OA Procedure(s) Performed: 1. RIGHT SI JOINT INJECTION UNDER FLUOROSCOPIC GUIDANCE. Anesthesia: local Surgeon: Mehdi Castellanos Pathology: none sent Condition: stable Disposition: PACU Indications for Procedure: Mr. Galarza is presenting for evaluation of low back pain and right lower extremity pain, right lower extremity numbness and tingling. It was my pleasure to have seen and examined Mr. Galarza. In our visit today we have had a chance to go over subjective complaints, physical examination findings and treatments including the natural course history without intervention and various interventional options. The patients imaging demonstrates: XRay Lumbar Multiview (AP, Lateral, Flexion, Extension) with AP pelvis; 5 views taken at [facility] on 05/02/23: - Re-reviewed with the patient today. Moderate multilevel and spondylitic changes with preserved alignment. Multilevel diminished disc height. Grade 1 retrolisthesis L2 onto L3 and L3 and L4. Vertebral body heights are preserved. No acute osseous abnormalities. Pelvis: The visualized sacrum and iliac wings are within normal limits. Right total hip arthroplasty present. Hardware is intact, no migration. MRI scancompleted at [facility] from07/31/22 of [facility]: - Re-reviewed with the patient today. Multilevel degenerative and disc indicate disease. there is mild canal stenosis and subarticular zone lateral recess stenosis at L2-L3 as described above. Hemangioma involving the entire L1 vertebral body without transcortical extension. CT [facility] at [facility] from05[facility]04/2023 of [facility]: IMPRESSION: 1. Grade 1 retrolisthesis of L2 posteriorly on L3. 2. Hemangioma L1. 3. Multilevel foraminal stenosis. This appears severe bilaterally at L2-3 and moderate to severe on the right at L5-S1. 4. Degenerative disc changes greatest at L2-3. On physical exam, Mr. Galarza demonstrates: The patient reports a continued constant, ache-like pain throughout the low back. The patient also reports continued radiating pain down into the right lower extremity, associated with numbness and tingling. The patient reports that his symptoms have been gradually worsening since their initial onset approximately 2 years ago. The patient denies experiencing any injury or trauma to the low back or lower extremities. The patient notes that his symptoms are exacerbated by prolonged sitting, getting up from chairs, or when going up the stairs, which makes it very difficult for him to complete his regular activities of daily living. The patient is having moderate sleep disturbances due to his ongoing symptoms. I have explained to the patient that as their condition progresses it will cause further neurological deficits and eventual paralysis. Based on the patients imaging, physical exam, and the rapid progression and disabling nature of their symptoms, at this time I recommend a procedure in the form of a: right SI joint injection. I discussed the risk and benefits of this procedure at length with Mr. Galarza. The patient agreed to considered pursuing the procedure above mentioned.Questions were invited and answered, and the patient wishes to proceed as outlined below. Currently, I am recommendin.Right SI joint injection Description of Procedure: RIGHT SIJ injection The patient was seen and examined in the preoperative area. All preoperative protocols were followed. Informed consent was obtained, risks and benefits of the procedure were discussed at length. Risks including bleeding infection damage to the surrounding tissue and risk of reoperation were discussed with the patient. Risk of anesthesia up to and including was discussed with the patient. These are outlined in the risk review. They were willing to accept these risks and all of the risks of surgery. The patient was seen and evaluated by the anesthesia team who deemed them fit for surgery. The site was marked, the patient was willing to proceed with the procedure. The patient was transferred to the operative suite by the Department of anesthesia. They were then drifted off to sleep by the department anesthesia and sedation with local was performed. The patient tolerated this well. Once confirmation of lines and ventilation the patient was transferred to a prone Joaquín table very carefully. All bony prominences including wrists, elbows, axilla, chest, hips, and thighs, and feet were padded very well. Special at tention was paid to the genitalia and these were padded accordingly. SCDs were placed on bilateral lower extremities and were connected. Arms were well padded and placed on arm boards up and out in the 90/90 position. Once in position, again we confirmed good ventilation capabilities and that lines were running appropriately. The patient's lumbopelvic spine was then exposed. 1010s were placed outlining the incision site. Standard alcohol was used to clean the incision site and allowed to dry. C-arm was used to biomark the patient and confirm level for incision which was marked with a skin marker. Operative briefing was performed with all teams and everyone in agreement to proceed. The patient was then prepped and draped in a normal sterile fashion. Timeout was then performed and all parties were in agreement with the procedure to be performed. Biplanar fluoroscopy was used to identify the RIGHT SI joints which were then accessed with a 18-gauge needle after anesthetic was placed into the subcutaneous tissue in the form of 1% with epinephrine of lidocaine along with a mixture of cortical percent Marcaine without epinephrine. Once there is good anesthesia and the SI joints were accessed Isovue was used to confirm within the joint space. Once this was confirmed 40 of Kenalog along with a mixture of lidocaine and Marcaine were injected into the SI joint. Patient remained stable the entire time without any radicular symptoms during the injection phase. The needles were withdrawn and the area cleaned and Band-Aids placed. The patient was transferred back to their hospital bed atraumatically. Patient was then awakened and extubated by the department of anesthesia having tolerated the procedure very well with no complications. They were transferred to the postoperative care unit in stable condition.
== END 2023-05-31 08:16 | disposition home or self-care (01) ==
LOC: OR 06:28
PROVIDERS: ATTEND Orthopaedic Surgery
DX: M46.1 Sacroiliitis, not elsewhere classified (principal); M43.16 Spondylolisthesis, lumbar region; J45.909 Unspecified asthma, uncomplicated; Z86.718 Personal history of other venous thrombosis and embolism; E78.5 Hyperlipidemia, unspecified; I10 Essential (primary) hypertension; Z96.651 Presence of right artificial knee joint; Z85.831 Personal history of malignant neoplasm of soft tissue; F32.A Depression, unspecified; Z80.9 Family history of malignant neoplasm, unspecified; Z79.899 Other long term (current) drug therapy
CPT/HCPCS: J1030; G0260

== ENCOUNTER → 2023-06-06 | Outpatient (CLI) | payer MEDICARE ==
[2023-06-06 09:14] VITALS: BP 140/84; PULSE 98; RESP 15; TEMP 98.2
--- NOTE | 2023-06-06 14:31 | P.PAINPG ---
PQRS Measure Charge Sheet Comment: A 57 yr old male with a history of severe and chronic LBP x 2 yrs secondary to lumbar DDD and spondylosis with facet arthropathy without myelopathy presents today for evaluation s/p R SI injection. Pt states she experienced 80 % pain relief x 1 wks s/p procedure. Pain level is provoked at 7 /10 in intensity, constant, localized in the R lower lumbar spine, sharp in character w shooting towards the R hip and R leg. Pain is provoked by sitting/ driving in excess of 30 min. Pain is alleviated with PT x 6 wks in Sep 2022, heat, ice, medications (Flex, Ibu), topical, laying supine, reclining, repositioning and rest. Pt also admits to calf cramping, tightness w RLE extension. Oswestry axial pain score of 23. Interventional pain procedures completed include R SI injection x2, R TFESI L5- S1 x2 Patient is currently on Flexeril, Ibu Patient denies any side effects of the medication(s), denies excessive drowsiness or sleepiness, denies suicidal ideation and reports that the current pain medication is helping to control the pain and improve activities of daily living. Patient denies any motor or sensory deficits. Patient denies any fever or night sweats, denies any change in the bowel movements or urination. Physical Examination: -Constitutional: Cooperative. Not in acute distress . - Neurologic: Cranial nerve II to XII intact. No focal neurological deficits. - Psychatric: Alert & oriented x 3. Matching mood & appropriate affect. Judgment and insight intact. - Musculoskeletal: Cervical spine: Muscle bulk/ tone/ strength in the bilateral upper extremities normal Vertebral body tenderness to palpation over Spurling test positive Distraction test positive Facet loading test positive TTP Thoracic spine Muscle bulk / tone/ strength in the bilateral paraspinal muscles normal Vertebral body tender to palpation over Facet loading test positive TTP Lumbar spine: Motor bulk/ tone/ strength lower extremities , thigh and legs : 5/5 Deep tendon reflexes : Normal Knee Jerk. Normal Ankle Jerk . Vertebral body tenderness to palpation over L2 Lumbar Facet Loading Test positive Straight Leg Raise: positive at 30 degrees right side/ left side Gaenslen's Test positive Sacral spine : Severe tenderness over the Sacroiliac joint: right side / left side Range of motion: Flexion of the lumbar spine <60 degrees Range of motion: Extension of the lumbar spine <20 degrees Gaenslen's Test positive right side / left side Arthur test: positive right side / left side Thigh Thrust Test positive right side / left side Sacral Thrust Test positive right side / left side Assessment and plan: Chronic LBP secondary to lumbar DDD, spondylosis with facet arthropathy without myelopathy Recommendation of R RFESI L2-L3 #3 injection. May need a series of injections, up to 4 within a 12 mo period, for optimal pain relief. Risks, benefits of procedure discussed and pt verbalized understanding. Admits to anticoagulant use or medical history of diabetes. Protocol for discontinuation/ continuation of medications giulia procedure discussed. Minimal anesthesia provided, if clinically indicated, consisting of Versed and Fentanyl. All questions answered. I have spent less than 30 minutes on patient care today. Dr Madsen was available by phone for the evaluation of this patient. The time was used to review the medical records including relevant urine studies and Prescription history (MAPs), review of the available imaging, evaluation and examination of the patient, coordination of care with the medical staff and if applicable referring physicians, as well as creation of the medical record PQRS Narrative: Smoking Status Never smoker Hx Alcohol Use (MH) No Home Medications: Ambulatory Orders Atorvastatin [Lipitor] 40 mg PO HS 05/27/15 Cholecalciferol (Vitamin D3) [Vitamin D3] 2,000 unit PO QAM 02/11/18 Ibuprofen [Motrin Ib] 600 mg PO Q8H PRN 10/21/22 Naproxen Sodium [Aleve] 220 mg PO Q12HR PRN 10/21/22 Sertraline [Zoloft] 100 mg PO QAM 10/21/22 Albuterol Inhaler [Ventolin Hfa Inhaler] 1 - 2 puff INHALATION Q6H PRN 11/18/22 Losartan-Hctz 50-12.5 mg [Hyzaar 50-12.5] 50 mg PO QAM 03/10/23 Controlled Substance Measures - Controlled Substance Measures Is patient prescribed a controlled substance at discharge?: No
== END ==
LOC: PNWHC3 08:47
PROVIDERS: ATTEND Specialist
DX: M51.36 Other intervertebral disc degeneration, lumbar region (principal); M47.816 Spondylosis without myelopathy or radiculopathy, lumbar region; M48.061 Spinal stenosis, lumbar region without neurogenic claudication; G89.29 Other chronic pain
CPT/HCPCS: 99211

== ENCOUNTER 2023-06-30 09:05 | Day surgery (SDC) | payer MEDICARE ==
[2023-06-24 15:13] VITALS: BMI 32.9
[~2023-06-30 09:05] MED LIST changes: -LIDOCAINE 1% (10MG/ML) FOR IV START INTRADERMA PRN; -Pre Op ABX Message 1 EACH MISC MISCELLANE ONE
[2023-06-30 09:37] VITALS: RESP 16; TEMP 97.4
[2023-06-30] MEDS ORDERED: DEXAMETHASONE SOD PHOSPHATE 10 MG/ML 1 ML VIAL ONE (10:18)
[2023-06-30] MEDS ORDERED: IOPAMIDOL M200 10 ML VIAL ONE (10:18)
--- NOTE | 2023-06-30 10:35 | P.PCN ---
Description of Procedure: Preoperative Diagnosis: Right lumbar radiculopathy Postoperative Diagnosis: Same as above Procedure(s) Performed: Transforaminal epidural steroid injection for level L2-3 on the right side under fluoroscopic guidance Anesthesia: Local only with lidocaine 1% Surgeon: Morgan Wharton Condition: stable Disposition: PACU Description of Procedure: . The patient was seen and identified in the preoperative area. Risks, benefits, complications, and alternatives were discussed with the patient. The patient agreed to proceed with the procedure and signed the consent. IV was started, and vital signs were stable. Patient was taken to the OR and time out was completed. The patient was placed in the prone position on procedure table and a pillow was placed under the abdomen to reduce lumbar lordosis. The lumbosacral area was prepped and draped in the usual sterile fashion. Critical pause was taken. Vital signs were closely monitored during the procedure. Conscious sedation was used during the procedure to decrease patients anxiety. Lidocaine 1% was used to numb the skin up at the target points that were chosen as follows: For the L2-3 level the target point was at the 6 o'clock position of L2 pedicle in the Rt oblique view. The correct view was obtained by squaring off the L2 vertebra on the AP view of fluoroscopy then the C-arm was tilted to the Rt oblique position to an angle at which the superior articular process of the lower vertebra would point to the middle of the pedicle above it at the 6 o'clock position as mentioned above . Then I used 3-1/2 inch 22-gauge Quincke spinal needle to get to the target point mentioned above by touching the inferior edge of the L4 pedicle and then walking off the bone and into the superior part of the L2-3 foramen using the lateral view of fluoroscopy. I then injected 1 mL of Isovue contrast dye which showed typical epidurogram around the L2 nerve root and into the epidural space. Then I injected 1 mL of lidocaine 1% +10 mg of Decadron.. Patient tolerated procedure well,and was transferred to PACU in stable condition. A copy of the needle placement picture was saved to the fluoroscopy machine.
[2023-06-30 10:37] VITALS: BP 149/100; PULSE 61
--- NOTE | 2023-06-30 11:12 | FL ---
Intraoperative/procedural fluoroscopic services were provided for left transforaminal lumbar injectio n. Total fluoroscopy time is 33.1 seconds with a total of 1 submitted image to PACS. Total DAP 0.2728 3 mGym2. Please see the operative note for further details.
== END 2023-06-30 10:48 | disposition home or self-care (01) ==
LOC: ORPAIN 09:05
PROVIDERS: ATTEND Anesthesiology
DX: M54.16 Radiculopathy, lumbar region (principal); I10 Essential (primary) hypertension; J45.909 Unspecified asthma, uncomplicated; E07.9 Disorder of thyroid, unspecified
CPT/HCPCS: 64483; J1100; Q9966

== ENCOUNTER 2023-09-09 11:36 | Day surgery (SDC) | payer MEDICARE ==
[2023-08-16 14:17] VITALS: BMI 32.9
--- NOTE | 2023-09-09 08:13 | P.HPOR ---
History of Present Illness H&P Date: 09/09/23 .D:Date: 07/27/23 : 08:33am .T:Title: [facility] Date of :61 [id number]: NKDA Age: 58 year Height: 6'6" Weight: 290 lbs BMI: 33.51 kg/m2 Occupation: Retired VAS: 7 CHIEF COMPLAINT: s/p Right SI joint injection DOI:N/A DOS:05/31/23 Post Op Week: 4 weeks HISTORY: Patient returns to the office today approximately 2 weeks following a right SI joint injection. States that they got 100% relief from the injection for 2 days but that their sx then returned gradually and are now back to near baseline for pain and discomfort. Difficulty going up and down stairs at this time. Difficulty with sitting and standing for any perior of time that is localized to that SIJ. No new trauma. No f/c/sob/cp. No new radicular sx or worsening leg pain. The patient's past medical history; past surgical history; family history; medicines; allergies and social history have been reviewed and are as stated elsewhere in the chart. 16 points review of systems completed and as stated in HPI, all other systems reviewed are negative. PHYSICAL EXAM: Patient is alert and oriented 3 appears well-nourished well-hydrated is in no acute distress. They do not appear septic. There is TTP: right sacroiliac tenderness Continued positive SIJ testing on the right although somewhat dulled at this time with decreased sensitivity but sitll with pain with compression, distration, FABER4, thigh and hip thrust manuvers. Lower extremities with5 out of 5 strength in all major muscle groups Upper extremities show5 out of 5 strength in all major muscle groups. There is FROM that is painless of the b/l UE and LE in all major joints. They are intact to light touch sensation in L2 to S1 nerve distribution as well as the C5-T1 distribution Patient shows a negative Homans, Ba's, negative Babinski's negative clonus bilaterally. Negative straight leg raise bilaterally. No tensioning signs. DTR 2/4 all upper and lower extremities Patient has palpable dorsalis pedis was posterior tibial pulses. Palpable Rad Ulnar pulses b/l Compartments are soft and compressible. Patient shows a negative Homans Cranial nerves II through XII are grossly intact. Special Testing: Trendelenburg sign: positive, right Steady Gait RAD IOGRAPHS: No new ASSESSMENT: 1. Right SIJ OA, severe with continued pain after injection 2. Buttock pain secondary to #1 PLAN: All options were reviewed today, we decided the best course of action would be: - Continue to second diagnostic injection - Discussed further treatments with bracing, SIbelt, pain meds, antiinflammatories etc all of which the patient has tried and failed. -No lifting, bending, twisting no lifting greater than 10 lbs. -Activity as tolerated at this time -Ice and rest for pain and swelling control. Follow-up: Post injection Medications Reviewed: yes Attestation: In our visit today Mr. Galarza and I have had a chance to go over my understanding of the patient's current condition, the natural course history without intervention and various interventional options. Questions were invited and answered, and the patient wishes to proceed as outlined above. I will be sure to keep you updated afterMr. Galarza returns here for further follow-up. Thank you again for your referral. Please do not hesitate to contact me if you have any further questions. Signed and authenticated by: Mehdi Lauren [facility] [address] [place] [address] This message is confidential, intended only for the named recipient(s) and may contain information that is privileged or exempt from disclosure under applicable law. If you are not the intended recipient(s), you are notified that the dissemination, distribution or copying of this information is strictly prohibited. If you received this message in error, please notify the sender then delete this message. Rx: CeleBREX 200 mg capsule, 60, Ref: 0, take 1 capsule (200 mg) by oral route BID # [id number] BY Mehdi Castellanos (GOO)08/22/2023 04:31PM Past Medical History Past Medical History: Asthma, Cancer, Deep Vein Thrombosis (DVT), Hyperlipidemia, Hypertension Additional Past Medical History / Comment(s): Hx DVT in leg after 1st knee replacement. 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 History of Any Multi-Drug Resistant Organisms: None Reported Past Surgical History: Hernia Repair, Joint Replacement, Orthopedic Surgery Additional Past Surgical History / Comment(s): Right knee replacement X2, bilateral knee arthroscopies, trigger finger surgeries X5, tumor removed from right thigh, PAIN CLINIC PROCEDURES. Past Anesthesia/Blood Transfusion Reactions: Postoperative Nausea & Vomiting (PONV) Smoking Status: Never smoker - Past Family History Mother Family Medical History: Cancer Medications and Allergies Home Medications Medication Instructions Recorded Confirmed Type Atorvastatin [Lipitor] 40 mg PO HS 05/27/15 09/07/23 History Cholecalciferol (Vitamin D3) 2,000 unit PO QAM 02/11/18 09/07/23 History [Vitamin D3] Ibuprofen [Motrin Ib] 600 mg PO Q8H PRN 10/21/22 09/07/23 History Naproxen Sodium [Aleve] 220 mg PO Q12HR PRN 10/21/22 09/07/23 History Sertraline [Zoloft] 100 mg PO QAM 10/21/22 09/07/23 History Albuterol Inhaler [Ventolin Hfa 1 - 2 puff INHALATION Q6H PRN 11/18/22 09/07/23 History Inhaler] Losartan-Hctz 50-12.5 mg [Hyzaar 50 mg PO QAM 03/10/23 09/07/23 History 50-12.5] Celecoxib [CeleBREX] 200 mg PO DAILY 08/16/23 09/07/23 History Allergies Allergy/AdvReac Type Severity Reaction Status Date / Time No Known Allergies Allergy Verified 08/16/23 14:08 Physical Examination Osteopathic Statement: *. No significant issues noted on an osteopathic structural exam other than those noted in the History and Physical/Consult.
[~2023-09-09 11:36] MED LIST changes: -LACTATED RINGERS 1,000 ML IV SCH; +Pre Op ABX Message 1 EACH MISC MISCELLANE ONE
[2023-09-09 12:14] VITALS: RESP 16; TEMP 97.6
[2023-09-09] MEDS ORDERED: BUPIVACAINE (PF) 0.5% 30 ML VIAL INTRAARTIC ONE (14:09)
[2023-09-09] MEDS ORDERED: LIDOCAINE 2%-EPI 1:100,000 20 ML VIAL INTRAARTIC ONE (14:09)
[2023-09-09] MEDS ORDERED: methylPREDNISolone ACETATE 40 MG/ML 1 ML VIAL INTRAARTIC ONE (14:10)
--- NOTE | 2023-09-09 14:33 | FL ---
EXAMINATION TYPE: FL guidance operating room DATE OF EXAM: 09/09/2023 HISTORY: Fluoroscopy time Total dose area product (DAP) in uGy*m?, mGy*cm? (or similar): 0.6075 IMPRESSION: 1. Fluoroscopy time.
[2023-09-09 14:53] VITALS: BP 139/75; PULSE 79
--- NOTE | 2023-09-26 06:35 | P.OP ---
Date of Procedure: 09/09/23 Description of Procedure: Progress Note Date: 09/09/23 Date of Procedure: Sep 09, 2023 Preoperative Diagnosis: 1. Right SIJ OA severe 2. low back pain Postoperative Diagnosis: 1. Right SIJ OA severe 2. low back pain Procedure(s) Performed: 1.Right SIJ injection under fluoroscopic guidance Implants: None Anesthesia: Local Surgeon: Mehdi Castellanos Estimated Blood Loss (ml): 1 IV fluids (ml): 0 Urine output (ml): 0 Pathology: none sent Condition: stable Disposition: PACU Indications for Procedure: [Mr. De La O is presenting for evaluation of [Right SI joint pain]. It was my pleasure to have seen and examined [Mr. De La O]. Today we have had a chance to go over subjective complaints, physical examination findings and treatments including the natural course history without intervention and various interventional options. The patients imaging demonstrates: [No evidence of spinal pathology on imaging that would account for his symptoms. He has no hip OA that is visible to account for symptoms. There is b/l SIJ sclerosis noted on pelvis films. There is no evidence of any infectious process within the SIJ b/l. No lesions. No fractures.] On the physical exam, [Mr. De La O] demonstrates: Patient reports pain across the buttocks and around the hip region. Continued pain in his buttock region on the right as well as pain in the posterior hip. I have explained to the patient that as their condition progresses it will cause further pain, continued debility or even progressive pain and issues. Based on the patients imaging, physical exam, and the rapid progression and disabling nature of their symptoms, at this time I recommend surgery in the form of: [Right SI joint injections]. I discussed the risk and benefits of this procedure at length with [Mr. Heller]. The patient agreed to consider pursuing the procedure above mentioned. Prior to surgery, the patient should follow up with her PCP (Cardio, ID, IM etc) for clearance. Questions were invited and answered, and the patient wishes to proceed as outlined below. Currently, I am recommendin. [RIGHT SI joint injections] Description of Procedure: Bilateral SIJ injection The patient was seen and examined in the preoperative area. All preoperative protocols were followed. Informed consent was obtained, risks and benefits of the procedure were discussed at length. Risks including bleeding infection damage to the surrounding tissue and risk of reoperation were discussed with the patient. Risk of anesthesia up to and including was discussed with the patient. These are outlined in the risk review. They were willing to accept these risks and all of the risks of surgery. The patient was seen and evaluated by the anesthesia team who deemed them fit for surgery. The site was marked, the patient was willing to proceed with the procedure. The patient was transferred to the operative suite by the Department of anesthesia. They were then drifted off to sleep by the department anesthesia and sedation with local was performed. The patient tolerated this well. Once confirmation of lines and ventilation the patient was transferred to a prone Joaquín table very carefully. All bony prominences including wrists, elbows, axilla, chest, hips, and thighs, and feet were padded very well. Special attention was paid to the genitalia and these were padded accordingly. SCDs were placed on bilateral lower extremities and were connected. Arms were well padded and placed on arm boards up and out in the 90/90 position. Once in position, again we confirmed good ventilation capabilities and that lines were running appropriately. The patient's lumbopelvic spine was then exposed. 1010s were pl aced outlining the incision site. Standard alcohol was used to clean the incision site and allowed to dry. C-arm was used to biomark the patient and confirm level for incision which was marked with a skin marker. Operative briefing was performed with all teams and everyone in agreement to proceed. The patient was then prepped and draped in a normal sterile fashion. Timeout was then performed and all parties were in agreement with the procedure to be performed. Biplanar fluoroscopy was used to identify the RIGHT SI joints which were then accessed with a 18-gauge needle after anesthetic was placed into the subcutaneous tissue in the form of 1% with epinephrine of lidocaine along with a mixture of cortical percent Marcaine without epinephrine. Once there is good anesthesia and the SI joints were accessed Isovue was used to confirm within the joint space. Once this was confirmed 40 of Kenalog along with a mixture of lidocaine and Marcaine were injected into the SI joint. Patient remained stable the entire time without any radicular symptoms during the injection phase. The needles were withdrawn and the area cleaned and Band-Aids placed. The patient was transferred back to their hospital bed atraumatically. Patient was then awakened and extubated by the department of anesthesia having tolerated the procedure very well with no complications. They were transferred to the postoperative care unit in stable condition.
== END 2023-09-09 14:36 | disposition home or self-care (01) ==
LOC: OR 11:36
PROVIDERS: ATTEND Orthopaedic Surgery
DX: M46.1 Sacroiliitis, not elsewhere classified (principal); J45.909 Unspecified asthma, uncomplicated; E78.5 Hyperlipidemia, unspecified; I10 Essential (primary) hypertension; Z86.718 Personal history of other venous thrombosis and embolism; Z79.1 Long term (current) use of non-steroidal anti-inflammatories (NSAID); Z96.651 Presence of right artificial knee joint
CPT/HCPCS: J1030; J0665; G0260

== ENCOUNTER → 2023-10-06 | Outpatient (CLI) | payer MEDICARE ==
--- NOTE | 2023-10-06 11:11 | XR ---
EXAMINATION TYPE: XR Hip Complete RT DATE OF EXAM: 10/06/2023 COMPARISON: NONE HISTORY: Postop TECHNIQUE: One view submitted. FINDINGS: There is postsurgical change compatible hip replacement surgery. Mild SI joint nephropathy with vacuu m changes. IMPRESSION: 1. Postoperative change. 2. SI joint arthropathy with vacuum changes. SI joint is only partially included in the [id number] .
== END | disposition home or self-care (01) ==
LOC: RADXRMAIN 10:22
PROVIDERS: ATTEND Orthopaedic Surgery
DX: S79.911A Unspecified injury of right hip, initial encounter (principal); M12.851 Other specific arthropathies, not elsewhere classified, right hip; Z98.890 Other specified postprocedural states
CPT/HCPCS: 73502

== ENCOUNTER → 2023-10-07 | Outpatient (CLI) | payer MEDICARE ==
--- NOTE | 2023-10-08 15:48 | MR ---
EXAMINATION: MR pelvis wo con DATE OF EXAM: 10/07/2023 COMPARISON: Right hip radiographs 10/06/2023 HISTORY: Lower back, pelvic and right hip/leg pain. Hx sarcoma right thigh. TECHNIQUE: Multiplanar, multisequence images of the bony pelvis were acquired without contrast. FINDINGS: BONES/MARROW: Normal bone marrow signal. Right total hip arthroplasty without evidence of complicatio n. Susceptibility artifact from this hardware limits evaluation of the right adductors. SOFT TISSUES: Thin fluid layer at the bone tendon interface right common hamstrings origin, relating to partial tear. No bursal distention. No fluid collection. Circumscribed 1.8 cm low T1/T2 signal str ucture left gluteal subcutaneous tissues, likely an injection granuloma. NEUROVASCULAR: Visualized neurovascular structures are normal. OTHER: Intramural lipoma in the sigmoid colon. Sigmoid diverticulosis.. No lymphadenopathy. IMPRESSION: 1. Right total hip arthroplasty without evidence of complication. 2. Partial tear of the right common hamstrings origin. 3. Likely injection granuloma left gluteal subcutaneous fat. 4. No evidence of recurrent/metastatic disease.
== END | disposition home or self-care (01) ==
LOC: RADMRIMAIN 05:52
PROVIDERS: ATTEND Orthopaedic Surgery
DX: M24.851 Other specific joint derangements of right hip, not elsewhere classified (principal); M54.50 Low back pain, unspecified; Z96.641 Presence of right artificial hip joint
CPT/HCPCS: 72195

== ENCOUNTER → 2023-11-28 | Outpatient (CLI) | payer MEDICARE ==
[2023-11-28 11:00] LABS: Partial Thromboplastin Time 26.3 sec (22.0-30.0); Prothrombin Time 10.6 sec (10.0-12.5)
[2023-11-28 15:08] LABS: HCT 48.4 % (39.6-50.0); HGB 16.2 g/dL (13.0-17.0); MCH 30.4 pg (27.0-32.0); MCHC 33.5 g/dL (32.0-37.0); MCV 90.8 FL (80.0-97.0); Mean Platelet Volume 11.7 FL (9.5-12.2); NRBC Per 100 WBC 0 X 10*3/uL (0.00-0.01); Platelet Count 258 X 10*3/uL (140-440); RBC 5.33 X 10*6/uL (4.40-5.60); RDW 12.7 % (11.5-14.5); WBC 7.34 X 10*3/uL (4.50-10.00)
[2023-11-28 15:18] LABS: BUN/Creat Ratio 16.78 Ratio (12.00-20.00); Blood Urea Nitrogen 15.1 mg/dL (9.0-27.0); Chloride 102 mmol/L (96-109); Glucose 95 mg/dL (70-110); Potassium 4.2 mmol/L (3.5-5.5); Sodium 142 mmol/L (135-145)
[2023-11-28 15:19] LABS: ALT 34 U/L (10-49); AST 35 U/L (14-35); Albumin 4.6 g/dL (3.8-4.9); Albumin/Globulin Ratio 1.92 Ratio (1.60-3.17); Alkaline Phosphatase 73 U/L (41-126); Calcium 9.9 mg/dL (8.7-10.3); Carbon Dioxide 27.3 mmol/L (21.6-31.8); Globulin 2.4 g/dL (1.6-3.3)
== END | disposition home or self-care (01) ==
LOC: LABWHC1 09:23
PROVIDERS: ATTEND Ophthalmology
DX: M13.88 Other specified arthritis, other site (principal)
CPT/HCPCS: 36415; 80053; 82306; 85027; 85610; 85730

== ENCOUNTER → 2023-12-16 | Outpatient (CLI) | payer MEDICARE | END | disposition home or self-care (01) | LOC: LABPAT 10:30 | PROVIDERS: ATTEND Orthopaedic Surgery | DX: Z01.812 Encounter for preprocedural laboratory examination (principal); Z22.322 Carrier or suspected carrier of Methicillin resistant Staphylococcus aureus; M13.88 Other specified arthritis, other site | CPT/HCPCS: 36415; 86850; 86900; 86901; 87070 ==

== ENCOUNTER → 2023-12-19 | Outpatient (CLI) | payer MEDICARE ==
--- NOTE | 2023-12-19 15:24 | CT ---
EXAMINATION TYPE: CT pelvis wo con DATE OF EXAM: 12/19/2023 COMPARISON: None HISTORY: sacroilitis CT DLP: 1174 mGycm Automated exposure control for dose reduction was used. Contrast: None Technique: Axial images 1.5 mm thick sections. Reconstructed images in the coronal plane FINDINGS: Attention is paid to the sacroiliac joints. Sacroiliac joints are patent. There is narrowing of the j oint spaces bilaterally. Mild sclerosis along the margins. No suspicious sclerosis is evident. Small subchondral cysts may be at the inferior anterior right sacroiliac joint. Otherwise, No subchondral c yst formation is evident. Left Femoral head articulates with the acetabulum. There is a right femoral prosthesis Symphysis pubis is normal No acute fractures are evident. IMPRESSION: 1. THERE MAY BE SOME MILD SACROILIITIS, GREATER ON THE RIGHT.
== END | disposition home or self-care (01) ==
LOC: RADCTMAIN 08:35
PROVIDERS: ATTEND Orthopaedic Surgery
DX: M46.1 Sacroiliitis, not elsewhere classified (principal)
CPT/HCPCS: 72192

== ENCOUNTER → 2023-12-23 | Day surgery (SDC) | payer MEDICARE ==
[~2023-12-23] MED LIST changes: +DEXAMETHASONE SOD PHOSPHATE 4 MG/ML 1 ML VIAL IV ONE; +KETAMINE HCL IN 0.9 % NACL 50 MG/5 ML SYRINGE ONE; +KETOROLAC 15 MG/ML 1 ML VIAL ONE; +LIDOCAINE 1% INJ 10MG/ML (20 ML MDV) ONE; +METOCLOPRAMIDE 5 MG/ML 2 ML VIAL IVP PRN; +MIDAZOLAM 2 MG/2 ML VIAL ONE; +PROPOFOL 10 MG/ML 20 ML VIAL IV ONE; -Pre Op ABX Message 1 EACH MISC MISCELLANE ONE; +SUCCINYLCHOLINE CHLORIDE 200 MG/10 ML VIAL IV ONE; +TRANEXAMIC 1,000 MG/100ML-NACL 1,000 MG in SALINE 1 100ML.BAG IVPB PRN; +TRANEXAMIC 1,000 MG/100ML-NACL PREMIX BAG ONE; +diphenhydrAMINE 50 MG/ML 1 ML VIAL ONE; +ePHEDrine 50 MG/ML 1 ML VIAL ONE; +fentaNYL (PF) 50 MCG/ML 2 ML AMP ONE
--- NOTE | 2023-12-23 06:36 | P.HPOR ---
History of Present Illness H&P Date: 12/16/23 .D:Date: 12/16/23 : 10:19am .T:Title: *[facility] History and Physical Date of :[birth year] [id number]: NKDA Age: 58 year Height: 6'6" Weight: 290 lbs BMI: 33.51 kg/m2 Occupation: Retired VAS: 4 Hand:Right IMPRESSION: It was my pleasure to have seen and examined Yasir. I reviewed the patient's clinical syndrome, physical findings, and imaging studies during the appointment today. It is my impression that the patient has a diagnosis of. 1. Right sacroiliitis 2. 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 PLAN: Based on my findings I suggest the following course of action: -I discussed treatment options with the patient, including operative and non- operative options, and they have elected to proceed with the following surgical procedure: Right minimally invasive sacroiliac joint fusion The indications, risks, benefits, and alternatives to surgery were discussed with the patient and family at length. Specifically (but not limited to) the risks of infection, stiffness, recurrence of symptoms, need for revision surgery, local numbness, neurovascular injury, and blood clots were discussed. The patient's questions were answered. The decision to proceed was made. Consent will be obtained for the procedure. - I have ordered a CT scan of the pelvis to include L4 with special protocol for preoperative/surgical planning. - Ambulate daily. - Take medications as directed. - Ice and rest for pain and swelling control. Spine Surgery Risk Review Mr. Galarza is presenting for evaluation of low back and right lower extremity pain. It was my pleasure to have seen and examined Mr. Galarza. In our visit today we have had a chance to go over subjective complaints, physical examination findings and treatments including the natural course history without intervention and various interventional options. The patients imaging demonstrates: XRays of the Right Hip taken at [facility] on 10/06/2023 of Right Hip: images reviewed postoperative changes total hip arthroplasty in place components appear to be in good position without loosening or lucencies. Small pedestaldistally on the lateral cortex however this is ingrowth on growth and it is a true pedestal. No other fracture dislocation noted [facility] of the Pelvis: right total hip arthroplasty no evidence of infection. No other signs of infection lesion or other issues. SI joint on the right shows severe sclerosis spondylitic changes. CT [facility] from05[facility]04[facility]2023 of LumbarSpine: - Re-reviewed with the patient today. IMPRESSION: 1. Grade 1 retrolisthesis of L2 posteriorly on L3. 2. Hemangioma L1. 3. Multilevel foraminal stenosis. This appears severe bilaterally at L2-3 and moderate to severe on the right at L5-S1. 4. Degenerative disc changes greatest at L2-3. XRay Lumbar Multiview (AP, Lateral, Flexion, Extension) with AP pelvis; 5 views taken at [facility] on 05/02/23: - Re-reviewed with the patient today. Moderate multilevel and spondylitic changes with preserved alignment. Multilevel diminished disc height. Grade 1 retrolisthesis L2 onto L3 and L3 and L4. Vertebral body heights are preserved. No acute osseous abnormalities. AP Pelvis: The visualized sacrum and iliac wings are within normal limits. Right total hip arthroplasty present. Hardware is intact, no migration. On physical exam, Mr. Galarza demonstrates: A continued ache-like tightness throughout the low back that radiates down into the right buttock and right lower extremity with a sharp, shooting quality. He denies experiencing any numbness or tingling throughout the right lower extremity at this time. He notes intermittent right hip pain. He states that his symptoms worsen after prolonged sitting, mostly when driving long distances. He also notes worsening pain after prolonged walking or when going from a seated to standing position. The patient states his symptoms have been progressively returned and worsened over the last 3 to 4 weeks following his most recent right SI joint injection. The patient reports experiencing severe sleep disturbances related to his ongoing pain and associated symptoms. I have explained to the patient that as their condition progresses it will cause further neurological deficits and eventual paralysis. Based on the patients imaging, physical exam, and the rapid progression and disabling nature of their symptoms, at this time I recommend surgery in the form of a: MIS right SI joint fusion. I discussed the risk and benefits of this procedure at length with Mr. Galarza. The patient agreed to considered pursuing the procedure above mentioned. Prior to surgery, she should follow up with her PCP (Cardio, ID, IM etc) for clearance. Questions were invited and answered, and the patient wishes to proceed as outlined below. Currently, I am recommendin.Right minimally invasive sacroiliac joint fusion 2.Review of surgical risks and benefits as well as an educational packet on the proposed surgical procedure. Risks: All surgical procedures come with inherent risks, including those related to positioning, anesthesia, intraoperative findings, and postoperative com plications. It is important to understand that surgery does not come with any guarantee of a successful outcome as complications and adverse events are always possible. The patient was given a handout in office today discussing the surgical procedure and risks associated with the intervention, both of which were discussed with the patient. These risks include but are not limited to the following: * Experiencing same, different or even worse symptoms in back, neck, arms, or legs compared to before surgery. Requiring further surgery or other forms of treatment presently or at some time in the future at same or other levels of the intended spine surgery. On an extreme but fortunately relatively rare basis severe complication such as blindness, stroke, heart attack, temporary and/or permanent nerve injury, paralysis, coma, or may occur, sometimes without known explanation. Surgical complications may include but are not limited to risk of infection, fluid accumulation in the surgical dissection site, including a seroma or hematoma, that requires additional surgery, wound drainage, bleeding, new numbness or weakness, vision changes/loss, spinal fluid leakage, non-healing and/or infected incision, headaches, difficulty or inability to swallow, hoarseness, hemopneumothorax, pneumothorax, impotence, retrograde ejaculation, vaginal dryness; injury to nerves, spinal cord, blood vessels, lymphatics or other vital organs (i.e., bowel injury, injury to the great vessels); heterotopic bone formation; complications related to the hardware such as screws, rods, cages including misplaced hardware, device failure, instrumentation at the wrong spine level, hardware fracture/breakage, or hardware loosening; vertebral failure of the spinal column above or below the newly placed hardware; retained surgical instrumentations or devices and the need for further surgery. * Medical risks of the planned spine surgery include but are not limited to generalized Infections to the whole body or local areas outside of the surgical site (sepsis), heart attack, bleeding, anaphylaxis, meningitis, seizure, epilepsy, hearing loss, burn ventura, laceration of the head or other areas of the body, bruising, hypersensitivity of the skin, bladder over distension; allergic reaction; shoulder injury related to positioning; fat, blood and air clots to other areas of the body like heart, lungs, brain; failure of internal organs such as lungs, kidneys, liver and excessive bleeding. If blood transfusions are necessary, note that transfusions may cause intolerance reactions such as anaphylaxis or other complex reactions. Despite best efforts, the results of spine surgery might not heal in terms of bone, soft tissues such as skin, fascia, ligaments, and joints. Additionally, in order to achieve best possible results, spine surgery may be carried out beyond the initially planned levels and involve decompression, fusion including insertion of hardware at levels other than the original intended area of surgical interest change some portions of the procedure in order to ensure the best possible outcomes. With spine surgery and spinal fusion, there are different off label uses of i nstrumentation (devices, implants and hardware) as well as biological substances (bone morphogenic proteins, demineralized bone matrix) as well as using extra bone from allograft sources (i.e. cadaver bone) or autograft (iliac crest bone, ribs, or the spine itself). The patient has been given information about these practices and their inherent risks and benefits. [facility] is an educational center that serves as a training facility for neurosurgical and orthopedic ASSEMBLER SEMICONDUCTOR and Nursing students. Physician assistants are medically trained surgical providers who function in the outpatient, inpatient, and operating room setting under the direct supervision of the attending surgeon. [facility] has multiple operating rooms with single and overlapping rooms running daily. They currently function under the required guidelines as produced by the [facility] Finance Committee with regards to the overlapping rooms and will continue to comply with changes to this policy as they occur. The requirements include and are complied with as follows: (1) the critical portions of the overlapping rooms will not occur at the same time, (2) the attending physician will be physically present during the critical portions of the procedure and immediately available during the entire case, and (3) a back-up attending is designated should the primary attending not be immediately available. The patient has had a chance to review all the listed information, has been given print outs detailing this information, and has had all his/her questions answered to their satisfaction. It was my pleasure to have seen and examined Mr. Galarza. In our visit today we have had a chance to go over my understanding of our patient's current condition, the natural course history without intervention and various interventional options. Questions were invited and answered, and the patient wishes to proceed as outlined above. I have seen and examined the patient for 25 minutes and we have spent more than 50% of the time in repeat and detailed counseling about the patient's condition, its natural course history with out and as much as can be predicted with surgery and re-review of various surgical treatment options. In conclusion, Mr. Galarza requested we proceed with the above suggested surgery and are willing to accept risks and limitations of the suggested surgery as n ature of the disease process and our best attempts at treatment for the condition. Thank you again for allowing us to be part of your patient's care. Please don't hesitate to contact me if you have any further questions. Follow- up: Post procedure Patient Education: (Informational booklet, instructions, etc) given at today's appointment: Yes .ED:Patient Education: Y Medications Reviewed: YES In our visit today Mr. Galarza and I have had a chance to go over my understanding of the patient's current condition, the natural course history without intervention and various interventional options. Questions were invited and answered, and the patient wishes to proceed as outlined above. I will be sure to keep you updated afterMr. Galarza returns here for further follow-up. Thank you again for your referral. Please do not hesitate to contact me if you have any further questions. Signed and authenticated by: Mehdi Arizmendi [facility] [address] [place] [id number] This message is confidential, intended only for the named recipient(s) and may contain information that is privileged or exempt from disclosure under applicable law. If you are not the intended recipient(s), you are notified that the dissemination, distribution or copying of this information is strictly prohibited. If you received this message in error, please notify the sender then delete this message. Patient verbalizes understanding of the information discussed. The above note was initiated by Joycelyn Mchugh, physician recording assistant football coach for Dr. Mehdi Castellanos. This note has been reviewed by Dr. Castellanos, who has made his personal changes and impressions for this document. CC: Corey Deleon D.O. Past Medical History Past Medical History: Asthma, Cancer, Deep Vein Thrombosis (DVT), Hyperlipidemia, Hypertension Additional Past Medical History / Comment(s): Hx DVT in leg after 1st knee replacement. 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 rt hip replacement Past Anesthesia/Blood Transfusion Reactions: Postoperative Nausea & Vomiting (PONV) Smoking Status: Never smoker - Past Family History Mother Family Medical History: Cancer Medications and Allergies Home Medications Medication Instructions Recorded Confirmed Type Atorvastatin [Lipitor] 40 mg PO HS 05/27/15 12/19/23 History Cholecalciferol (Vitamin D3) 2,000 unit PO QAM 02/11/18 12/19/23 History [Vitamin D3] Sertraline [Zoloft] 100 mg PO QAM 10/21/22 12/19/23 History Losartan-Hctz 50-12.5 mg [Hyzaar 50 mg PO QAM 03/10/23 12/19/23 History 50-12.5] Albuterol Inhaler (Unk) 2 inh INHALATION DIRECTED PRN 12/19/23 12/19/23 History Symbicort Inhaler (Unk) 2 inh INHALATION DAILY PRN 12/19/23 12/19/23 History Allergies Allergy/AdvReac Type Severity Reaction Status Date / Time No Known Allergies Allergy Verified 12/19/23 11:08 Physical Examination Osteopathic Statement: *. No significant issues noted on an osteopathic structural exam other than those noted in the History and Physical/Consult.
[2023-12-23] MEDS: ACETAMINOPHEN TAB 500 MG TAB PO PRN (09:28)
[2023-12-23] MEDS: GABAPENTIN 300 MG CAP PO PRN (09:28)
[2023-12-23] MEDS: SCOPOLAMINE 1 MG/72 HR PATCH TRANSDERM ONE (09:33)
[2023-12-23] MEDS: DEXAMETHASONE SOD PHOSPHATE 4 MG/ML 1 ML VIAL IV ONE (09:38)
[2023-12-23] MEDS: LACTATED RINGERS 1,000 ML IV SCH (09:38)
[2023-12-23] MEDS: LIDOCAINE 1% (10MG/ML) FOR IV START INTRADERMA PRN (09:38)
[2023-12-23] MEDS: ONDANSETRON 4 MG/2 ML VIAL IVP PRN (09:39)
[2023-12-23] MEDS: ceFAZolin 3 GM in SODIUM CHLORIDE 0.9% 100 ML IVPB PRN (10:15)
[2023-12-23] MEDS: LACTATED RINGERS 1,000 ML IV ONE (11:51)
--- NOTE | 2023-12-23 12:12 | P.OP ---
Date of Procedure: 12/23/23 Preoperative Diagnosis: Current Active Problems Sacrococcygeal disorders, not elsewhere classified (Acute) Spondylosis without myelopathy or radiculopathy, sacral and sacrococcygeal region (Acute) Sacroiliitis, not elsewhere classified (Acute) Postoperative Diagnosis: Current Active Problems Sacrococcygeal disorders, not elsewhere classified (Acute) Spondylosis without myelopathy or radiculopathy, sacral and sacrococcygeal region (Acute) Sacroiliitis, not elsewhere classified (Acute) Procedure(s) Performed: 1. Minimally invasive SIJ arthrodesis (31528) 2. Use of SigFig navigation for screw planning and placement (81087) use of Saluspot Implants: SI Bone Torque Screw 11.5 x 55, 45, 55 mm Anesthesia: GETA Surgeon: Mehdi Castellanos Java Developer With Security Clearance #1: Gisella Vieira (WAS PRESENT AND ASSISTED WITH ALL ASPECTS OF THE CASE FROM POSITION TO CLOSURE) Estimated Blood Loss (ml): 25 IV fluids (ml): 1,100 Urine output (ml): 0 Pathology: none sent Condition: stable Disposition: PACU Indications for Procedure: Mr. Galarza is presenting for evaluation of low back and right lower extremity pain. It was my pleasure to have seen and examined Mr. Galarza. In our visit today we have had a chance to go over subjective complaints, physical examination findings and treatments including the natural course history without intervention and various interventional options. The patients imaging demonstrates: XRays of the Right Hip taken at [facility] on 10/06/2023 of Right Hip: images reviewed postoperative changes total hip arthroplasty in place components appear to be in good position without loosening or lucencies. Small pedestaldistally on the lateral cortex however this is ingrowth on growth and it is a true pedestal. No other fracture dislocation noted [facility] 10[facility]07[facility]23 of the Pelvis: right total hip arthroplasty no evidence of infection. No other signs of infection lesion or other issues. SI joint on the right shows severe sclerosis spondylitic changes. CT [facility] from05[facility]04[facility]23 of LumbarSpine: - Re-reviewed with the patient today. IMPRESSION: 1. Grade 1 retrolisthesis of L2 posteriorly on L3. 2. Hemangioma L1. 3. Multilevel foraminal stenosis. This appears severe bilaterally at L2-3 and moderate to severe on the right at L5-S1. 4. Degenerative disc changes greatest at L2-3. XRay Lumbar Multiview (AP, Lateral, Flexion, Extension) with AP pelvis; 5 views taken at [facility] on 05/02/23: - Re-reviewed with the patient today. Moderate multilevel and spondylitic changes with preserved alignment. Multilevel diminished disc height. Grade 1 retrolisthesis L2 onto L3 and L3 and L4. Vertebral body heights are preserved. No acute osseous abnormalities. AP Pelvis: The visualized sacrum and iliac wings are within normal limits. Right total hip arthroplasty present. Hardware is intact, no migration. On physical exam, Mr. Galarza demonstrates: A continued ache-like tightness throughout the low back that radiates down into the right buttock and right lower extremity with a sharp, shooting quality. He denies experiencing any numbness or tingling throughout the right lower extremity at this time. He notes intermittent right hip pain. He states that his symptoms worsen after prolonged sitting, mostly when driving long distances. He also notes worsening pain after prolonged walking or when going from a seated to standing position. The patient states his symptoms have been progressively returned and worsened over the last 3 to 4 weeks following his most recent right SI joint injection. The patient reports experiencing severe sleep disturbances related to his ongoing pain and associated symptoms. I have explained to the patient that as their condition progresses it will cause further neurological deficits and eventual paralysis. Based on the patients imaging, physical exam, and the rapid progression and disabling nature of their symptoms, at this time I recommend surgery in the form of a: MIS right SI joint fusion. I discussed the risk and benefits of this procedure at length with Mr. Galarza. The patient agreed to considered pursuing the procedure above mentioned. Prior to surgery, she should follow up with her PCP (Cardio, ID, IM etc) for clearance. Questions were invited and answered, and the patient wishes to proceed as outlined below. Currently, I am recommendin.Right minimally invasive sacroiliac joint fusion Description of Procedure: RIGHT SI fusion MIS (CUATE) The patient was seen and examined in the preoperative area. All preoperative protocols were followed. Informed consent was obtained, risks and benefits of the procedure were discussed at length. Risks including bleeding infection damage to the surrounding tissue and risk of reoperation were discussed with the patient. Risk of anesthesia up to and including was discussed with the patient. These are outlined in the risk review. They were willing to accept these risks and all of the risks of surgery. The patient was given a weight- based dose of antibiotics in the form of 2 g Ancef. The patient was seen and evaluated by the anesthesia team who deemed them fit for surgery. The site was marked, the patient was willing to proceed with the procedure. The patient was transferred to the operative suite by the Department of anesthesia. They were then drifted off to sleep by the department anesthesia and GETA was performed. The patient tolerated this well. Once confirmation of lines and ventilation the patient was transferred to a [prone Joaquín table very carefully]. All bony prominences including wrists, elbows, axilla, chest, hips, and thighs, and feet were padded very well. Special attention was paid to the genitalia and these were padded accordingly. SCDs were placed on bilateral lower extremities and were connected. Arms were well padded and placed [on arm boards up and out in the 90/90 position]. Once in position, again we confirmed good ventilation capabilities and that lines were running appropriately. The patient's lumbopelvic spine was then exposed. 1010s were placed outlining the incision site. Standard alcohol was used to clean the incision site and allowed to dry. C-arm was used to biomark the patient and confirm level for incision which was marked with a skin marker. Operative briefing was performed with all teams and everyone in agreement to proceed. The patient was then prepped and draped in a normal sterile fashion. Timeout was then performed and all parties were in agreement with the procedure to be performed. Skin nicks were made over the PSIS on the left and pins placed into the PSIS for the tracker. Tracker was placed and a 3D Zhiem spin was obtained and registered. Once it was registered it was confirmed to be accurate. Preoperative pelvic CT and SPin were then merged in the Cuate system and screws were pre-planned off the field. Once they were optimal we proceeded with placement. Skin incision was then made over the previously marked area over the RIGHT upper buttock region of the patient following the alar lines and mid sacral line. Blunt dissection was then taken down to the ilium. The first pin was then selected and placed optimally within the SI region superiorly using a navigated Jamshidi to find the path across the SIJ according to the pre planned position on navigation. This was then measured and drilled with a navigated tap and a screw placed using a navigated pick up and delivery driver. This was repeated for the remaining two screws following the previously planned paths as described. All screws had excellent purchase and were confirmed to be in good position on AP lateral inlet and outlet views. Neuro monitoring was then used to test the superior screw for L5 and S1 and these tested above 20 mA. No neuro monitoring changes during surgery, no EMG. Final fluoroscopic images then confirmed good placement of hardware. We then thoroughly irrigated the wound. Deep fascia was closed with 0 Vicryl superficial closed with 2-0 Vicryl and skin closed with strata fix Monocryl. The wound was then cleaned and dressed with skin glue which was allowed to dry and then a Band-Aid. The patient was transferred back to their hospital bed atraumatically. Patient was then awakened and extubated by the department of anesthesia having tolerated the procedure very well with no complications. They were transferred to the postoperative care unit in stable condition.
[2023-12-23] MEDS: HYDROmorphone 0.5 MG/0.5 ML SYRINGE IVP PRN (12:30)
[2023-12-23 12:31] VITALS: TEMP 96.9
[2023-12-23 13:33] VITALS: RESP 14
[2023-12-23 14:35] VITALS: BP 119/63; PULSE 85
--- NOTE | 2023-12-23 16:11 | FL ---
EXAMINATION TYPE: FL guidance operating room, XR lumbar spine 2 or 3V Intraoperative/procedural fluor oscopic services were provided. Total fluoroscopy time is 3.4 seconds with a total of 6 submitted romeo ges to PACS. Please see the operative/procedural note for further details. DAP: 3573.62 cGycm2
== END | disposition home or self-care (01) ==
LOC: OR 08:27
PROVIDERS: ATTEND Orthopaedic Surgery
DX: M46.1 Sacroiliitis, not elsewhere classified (principal); J45.909 Unspecified asthma, uncomplicated; I10 Essential (primary) hypertension; E78.5 Hyperlipidemia, unspecified; Z96.651 Presence of right artificial knee joint; Z79.51 Long term (current) use of inhaled steroids; Z79.899 Other long term (current) drug therapy; Z98.890 Other specified postprocedural states
CPT/HCPCS: 72100; 27279; 61783; C1713; J2250; J0330; J1200; J1100; J0690; J2405; J2001; J3010; J1885; J2704; J1170

== ENCOUNTER → 2024-12-03 | Outpatient (CLI) | payer MEDICARE ==
[2024-12-03 15:12] LABS: Basophils # (A) 0.03 X 10*3/uL (0.00-0.10); Basophils % (A) 0.4 %; Eosinophils # (A) 0.12 X 10*3/uL (0.04-0.35); Eosinophils % (A) 1.8 %; HCT 47.7 % (39.6-50.0); HGB 15.9 g/dL (13.0-17.0); Lymphocytes # (A) 1.44 X 10*3/uL (0.90-5.00); Lymphocytes % (A) 21.3 %; MCH 30.2 pg (27.0-32.0); MCHC 33.3 g/dL (32.0-37.0); MCV 90.7 FL (80.0-97.0); Mean Platelet Volume 11.5 FL (9.5-12.2); Monocytes # (A) 0.44 X 10*3/uL (0.20-1.00); Monocytes % (A) 6.5 %; NRBC Per 100 WBC 0 X 10*3/uL (0.00-0.01); Neutrophils # (A) 4.72 X 10*3/uL (1.80-7.70); Neutrophils % (A) 69.7 %; Platelet Count 232 X 10*3/uL (140-440); RBC 5.26 X 10*6/uL (4.40-5.60); RDW 12.7 % (11.5-14.5); WBC 6.77 X 10*3/uL (4.50-10.00)
[2024-12-03 15:50] LABS: ALT 32 U/L (10-49); AST 32 U/L (14-35); Albumin 4.5 g/dL (3.8-4.9); Albumin/Globulin Ratio 2.14 Ratio (1.60-3.17); Alkaline Phosphatase 69 U/L (41-126); BUN/Creat Ratio 21.25 Ratio (12.00-20.00); Calcium 9.5 mg/dL (8.7-10.3); Carbon Dioxide 27.1 mmol/L (21.6-31.8); Chloride 101 mmol/L (96-109); Chol/HDL Ratio 4.14 Ratio; Globulin 2.1 g/dL (1.6-3.3); Glucose 101 mg/dL (70-110); LDL Cholesterol,Calculated 99.3 mg/dL (0.0-131.0); Potassium 4.1 mmol/L (3.5-5.5); Sodium 139 mmol/L (135-145); Total Bilirubin 0.9 mg/dL (0.3-1.2); Total Protein 6.6 g/dL (6.2-8.2)
[2024-12-03 15:51] LABS: Prostate Specific Antigen 2.36 ng/mL (0.000-4.500); T4, Free (Free Thyroxine) 0.85 ng/dL (0.80-1.80)
== END | disposition home or self-care (01) ==
LOC: LABWHC1 09:41
PROVIDERS: ATTEND Internal Medicine Critical Care Medicine
DX: Z00.00 Encounter for general adult medical examination without abnormal findings (principal); E78.5 Hyperlipidemia, unspecified; F32.9 Major depressive disorder, single episode, unspecified; M13.859 Other specified arthritis, unspecified hip
CPT/HCPCS: 36415; 80053; 80061; 82306; 83036; 84153; 84439; 84443; 85025